=== PATIENT | female | born 2000 | race Caucasian/White ===

== ENCOUNTER 2019-03-30 15:38 | Emergency (ER) | payer BC ==
--- NOTE | 2019-03-30 16:17 | ER Document Report ---
ED Medical Screen (RME) - General Chief Complaint: Abdominal Cramping Stated Complaint: VAGINAL PAIN Time Seen by Provider: 03/30/19 16:13 - HPI Notes: 03/30/19 16:16 Patient is a 18-year-old female approximately 4 and half weeks by gestation who presents complaining of lower abdominal cramping over the past couple days. Pains do not radiate. She is able to eat and drink without difficulty. She is urinating normally and having normal bowel movements. No vaginal discharge, odor, or bleeding. Denies drug allergies. No other concerns or complaints. Denies any headache, fever, neck pain, URI, sore throat, chest pain, palpitations, syncope, cough, shortness of breath, wheeze, dyspnea, nausea/vomiting/diarrhea, urinary retention, dysuria, hematuria, back pain, or rash. I have treated and performed a rapid initial assessment of this patient. A comprehensive ED assessment and evaluation of the patient, analysis of test results and completion of medical decision making process will be conducted by additional ED providers. PHYSICAL EXAMINATION: GENERAL: Well-appearing, well-nourished and in no acute distress. A&Ox4. Answers questions appropriately. LUNGS: Breath sounds clear to auscultation bilaterally and equal. No wheezes rales or rhonchi. HEART: Regular rate and rhythm without murmurs, rubs, gallops. ABDOMEN: Soft, nondistended abdomen. No guarding, no rebound. Normal bowel sounds present. No CVA tenderness bilaterally. + lower pelvic tenderness (cannot elicit thorough abd exam w/o bed, however). - Related Data Allergies/Adverse Reactions: No Known Allergies Allergy (Verified 03/30/19 15:50) Past Medical History - Social History Chew tobacco use (# tins/day): No Frequency of alcohol use: None Drug Abuse: None Renal/ Medical History: Denies: Hx Peritoneal Dialysis Physical Exam - Vital signs Vitals: Temp Pulse Resp BP Pulse Ox 98.5 F 97 H 20 122/66 97 03/30/19 15:53 03/30/19 15:53 03/30/19 15:53 03/30/19 15:53 03/30/19 15:53 Course - Vital Signs Vital signs: Temp Pulse Resp BP Pulse Ox 98.5 F 97 H 20 122/66 97 03/30/19 15:53 03/30/19 15:53 03/30/19 15:53 03/30/19 15:53 03/30/19 15:53
[2019-03-30 16:45] LABS: ABSOLUTE BASOPHILS # (AUTO) 0.1 10^3/uL (0.0-0.2); ABSOLUTE EOSINOPHILS # (AUTO) 0.1 10^3/uL (0.0-0.6); ABSOLUTE MONOCYTES (AUTO) 0.8 10^3/uL (0.1-1.4); ABSOLUTE NEUT (AUTO) 12.2 10^3/uL (1.7-8.2); BASOPHILS % (AUTO) 0.6 % (0-2); EOSINOPHILS % (AUTO) 0.6 % (0-6); HEMATOCRIT 38.4 % (36.0-47.0); HEMOGLOBIN 13.2 g/dL (12.0-15.5); MEAN CORPUSCULAR HEMOGLOBIN 30.8 pg (27.0-33.4); MEAN CORPUSCULAR HGB CONC 34.2 g/dL (32.0-36.0); MEAN CORPUSCULAR VOLUME 90 fl (80-97); MONOCYTES % (AUTO) 5.3 % (3-13); PLATELET COUNT 203 10^3/uL (150-450); RED BLOOD COUNT 4.27 10^6/uL (3.72-5.28); RED CELL DISTRIBUTION WIDTH 12.4 % (11.5-14.0); SEGMENTED NEUTROPHILS % (AUTO) 80.5 % (42-78); TOTAL CELLS COUNTED % (AUTO) 100 %; WHITE BLOOD COUNT 15.1 10^3/uL (4.0-10.5)
[2019-03-30 16:49] LABS: APPEARANCE,URINE CLOUDY; BILIRUBIN,URINE NEGATIVE (NEGATIVE); COLOR,URINE YELLOW; GLUCOSE, URINE NEGATIVE (NEGATIVE); KETONES,URINE NEGATIVE (NEGATIVE); LEUKOCYTE ESTERASE,URINE MODERATE (NEGATIVE); NITRITE,URINE NEGATIVE (NEGATIVE); PROTEIN,URINE NEGATIVE (NEGATIVE); URINE SPECIFIC GRAVITY 1.017; UROBILINOGEN,URINE NEGATIVE mg/dL (<2.0)
[2019-03-30 17:08] LABS: ALANINE AMINOTRANSFERASE 31 U/L (5-35); ALKALINE PHOSPHATASE 81 U/L (50-135); ANION GAP 8 (5-19); ASPARTATE AMINO TRANSFERASE 23 U/L (5-30); BILIRUBIN,DIRECT 0.2 mg/dL (0.0-0.4); BILIRUBIN,TOTAL 0.2 mg/dL (0.2-1.3); BLOOD UREA NITROGEN 15 mg/dL (7-20); CALCIUM 9.3 mg/dL (8.4-10.2); CARBON DIOXIDE 25 mmol/L (22-30); CHLORIDE 105 mmol/L (98-107); GLUCOSE 114 mg/dL (75-110); LIPASE 93.6 U/L (23-300); POTASSIUM 3.9 mmol/L (3.6-5.0); SODIUM 138.4 mmol/L (137-145); TOTAL PROTEIN 6.9 g/dL (6.3-8.2)
--- NOTE | 2019-03-30 18:25 | RADIOLOGY REPORT (SQ) ---
EXAM DESCRIPTION: U/S OB TRANSVAG W/DOPPLER COMPLETED DATE/TIME: 03/30/2019 6:10 pm REASON FOR STUDY: pelvic cramping, home preg +, ?4wks COMPARISON: None. TECHNIQUE: Transvaginal static and realtime grayscale images acquired of the pelvis. Additional chloe cted spectral and color Doppler images recorded. All images stored on PACs. CLINICAL AGE: 4 week 2 day. BHC LIMITATIONS: None. FINDINGS: UTERUS: No visualized intrauterine . RIGHT ADNEXA: Normal ovary with normal vascular flow. No adnexal free fluid. No adnexal masses. LEFT ADNEXA: Normal ovary with normal vascular flow. No adnexal free fluid. Simple cyst(s) measuring 1 cm. FREE FLUID: None. OTHER: No other significant finding. IMPRESSION: NO VISUALIZED INTRA- OR EXTRAUTERINE . bHCG LEVEL TOO LOW TO EXPECT VISUALIZATION OF . ECTOPIC CANNOT BE EXCLUDED. FOLLOW-UP ULTRASOUND AND SERIAL BHCG LEVELS STRONGLY RECOMMENDED TO ACCURATELY ASSESS STATU S. TECHNICAL DOCUMENTATION: JOB ID: [id number] [employer]- All Rights Reserved Reading location - IP/workstation name: [email or web address]
--- NOTE | 2019-03-30 18:31 | ER Document Report ---
ED GI/ - General Chief Complaint: Abdominal Cramping Stated Complaint: VAGINAL PAIN Time Seen by Provider: 03/30/19 16:13 Primary Care Provider: [facility] [Provider Group] - Follow up tomorrow [facility] [NO LOCAL MD] - Follow up as needed Mode of Arrival: Ambulatory Information source: Patient Notes: Patient is currently 4 weeks G1, P0. Patient states she has had cramping to the lower abdomen and low back for the past 3 days. Patient states that she is also had right upper quadrant abdominal pain that started yesterday. Patient states she has a history of gallbladder disease and was advised that she would need to have her gallbladder taken out but she did not have that procedure done. Patient states that she has noticed recently with eating fatty foods that she has had a flareup of her abdominal pain symptoms. Patient denies any fever nausea or vomiting. Patient also reports that she is currently under treatment for recent strep infection and has about 5 more days of amoxicillin to take at home. Patient denies any vaginal bleeding. - HPI Patient complains to provider of: Abdominal pain, Pelvic pain, . No: Vaginal discharge Onset: Other - 3 days Quality of pain: Cramping Pain Level: 2 Location: RUQ, Pelvis Menstrual period history: Sexual history: Active Associated symptoms: denies: Constipation, Dysuria, Fever, Nausea, Urinary hesitancy, Urinary frequency, Urinary retention, Vaginal discharge, Vomiting Exacerbated by: Denies Relieved by: Denies Similar symptoms previously: No Recently seen / treated by doctor: No - Related Data Allergies/Adverse Reactions: No Known Allergies Allergy (Verified 03/30/19 15:50) Past Medical History - General Information source: Patient - Social History Smoking Status: Former Smoker Chew tobacco use (# tins/day): No Frequency of alcohol use: None Drug Abuse: None Lives with: Family Family History: Reviewed & Not Pertinent Patient has suicidal ideation: No Patient has homicidal ideation: No - Medical History Medical History: Negative Renal/ Medical History: Denies: Hx Peritoneal Dialysis Surgical Hx: Negative Review of Systems - Review of Systems Constitutional: Recent illness - Currently being treated for strep infection EENT: No symptoms reported. denies: Throat pain Cardiovascular: No symptoms reported. denies: Chest pain Respiratory: No symptoms reported. denies: Cough, Short of breath Gastrointestinal: Abdominal pain. denies: Nausea, Vomiting Genitourinary: No symptoms reported. denies: Dysuria, Flank pain Female Genitourinary: . denies: Vaginal discharge, Vaginal bleeding Musculoskeletal: Back pain Skin: No symptoms reported Hematologic/Lymphatic: No symptoms reported Neurological/Psychological: No symptoms reported Physical Exam - Vital signs Vitals: Temp Pulse Resp BP Pulse Ox 98.5 F 97 H 20 122/66 97 03/30/19 15:53 03/30/19 15:53 03/30/19 15:53 03/30/19 15:53 03/30/19 15:53 - General General appearance: Appears well, Alert In distress: None - HEENT Head: Normocephalic Eyes: Normal Conjunctiva: Normal - Respiratory Respiratory status: No respiratory distress Chest status: Nontender Breath sounds: Normal Chest palpation: Normal - Cardiovascular Rhythm: Regular Heart sounds: S1 appreciated, S2 appreciated Murmur: No - Abdominal Inspection: Normal Distension: No distension Bowel sounds: Normal Tenderness: Tender - RUQ, suprapubic Organomegaly: No organomegaly - Genitourinary External exam: Normal Speculum exam: Cervix closed, Vaginal discharge - Minimal white clumpy discharge Vaginal bleeding: None Bimanuel exam: Normal. No: Cervical motion tender, Adnexal tenderness Notes: PCT Byron standby - Back Back: Tender - Lumbar paraspinal tenderness - Extremities General upper extremity: Normal inspection, Normal strength General lower extremity: Normal inspection, Normal strength - Neurological Neuro grossly intact: Yes Cognition: Normal Mac Coma Scale Eye Opening: Spontaneous [place] Coma Scale Verbal: Oriented [place] Coma Scale Motor: Obeys Commands Mac Coma Scale Total: 15 - Psychological Associated symptoms: Normal affect, Normal mood - Skin Skin Temperature: Warm Skin Color: Ashen Course - Re-evaluation Re-evalutation: 03/30/19 20:37 Patient has a known history of gallbladder disease. Patient does have findings worrisome for cholelithiasis without any findings worrisome for acute cholecystitis. Patient afebrile with otherwise stable vital signs. Patient with mild leukocytosis although patient is at this time. No intrauterine noted on ultrasound although patient's quantitative hCG test is too low to expect to any intrauterine findings. Patient without any vaginal bleeding. Patient does have incidental leukocyte esterase on urinalysis although is currently still taking antibiotics for a strep infection. Will culture urine at this time. Patient additionally has findings worrisome for yeast vaginitis. Patient encouraged to follow-up with an TOOLER for further evaluation and to further evaluate her status. Patient will be given strict return precautions as well as an outpatient order for repeat blood work in the 48 hours. - Vital Signs Vital signs: Temp Pulse Resp BP Pulse Ox 98.5 F 78 20 116/73 98 03/30/19 15:53 03/30/19 20:54 03/30/19 15:53 03/30/19 20:54 03/30/19 20:54 - Laboratory Result Diagrams: 03/30/19 16:19 03/30/19 16:19 Laboratory results interpreted by me: 03/30/19 03/30/19 03/30/19 16:19 16:19 16:19 WBC 15.1 H Seg Neutrophils % 80.5 H Absolute Neutrophils 12.2 H Glucose 114 H Beta HCG, Quant 161.53 H Ur Leukocyte Esterase MODERATE H 03/30/19 20:36 Labs- Entire Visit 03/30/19 03/30/19 03/30/19 16:19 16:19 16:19 WBC 15.1 H RBC 4.27 Hgb 13.2 Hct 38.4 MCV 90 MCH 30.8 MCHC 34.2 RDW 12.4 Plt Count 203 Seg Neutrophils % 80.5 H Lymphocytes % 13.0 Monocytes % 5.3 Eosinophils % 0.6 Basophils % 0.6 Absolute Neutrophils 12.2 H Absolute Lymphocytes 2.0 Absolute Monocytes 0.8 Absolute Eosinophils 0.1 Absolute Basophils 0.1 Sodium 138.4 Potassium 3.9 Chloride 105 Carbon Dioxide 25 Anion Gap 8 BUN 15 Creatinine 0.54 Est GFR ( Amer) > 60 Est GFR (Non-Af Amer) > 60 Glucose 114 H Calcium 9.3 Total Bilirubin 0.2 Direct Bilirubin 0.2 Neonat Total Bilirubin Not Reportable Neonat Direct Bilirubin Not Reportable Neonat Indirect Bili Not Reportable AST 23 ALT 31 Alkaline Phosphatase 81 Total Protein 6.9 Albumin 4.0 Lipase 93.6 Beta HCG, Quant 161.53 H Total Beta HCG POSITIVE Urine Color YELLOW Urine Appearance CLOUDY Urine pH 5.0 Ur Specific [place] 1.017 Urine Protein NEGATIVE Urine Glucose (UA) NEGATIVE Urine Ketones NEGATIVE Urine Blood NEGATIVE Urine Nitrite NEGATIVE Urine Bilirubin NEGATIVE Urine Urobilinogen NEGATIVE Ur Leukocyte Esterase MODERATE H Urine WBC (Auto) 10 Urine RBC (Auto) 3 Urine Bacteria (Auto) TRACE Squamous Epi Cells Auto 13 Urine Mucus (Auto) RARE Urine Ascorbic Acid NEGATIVE Trichomonas (Wet Prep) Vaginal WBC Vaginal Yeast 03/30/19 18:30 WBC RBC Hgb Hct MCV MCH MCHC RDW Plt Count Seg Neutrophils % Lymphocytes % Monocytes % Eosinophils % Basophils % Absolute Neutrophils Absolute Lymphocytes Absolute Monocytes Absolute Eosinophils Absolute Basophils Sodium Potassium Chloride Carbon Dioxide Anion Gap BUN Creatinine Est GFR ( Amer) Est GFR (Non-Af Amer) Glucose Calcium Total Bilirubin Direct Bilirubin Neonat Total Bilirubin Neonat Direct Bilirubin Neonat Indirect Bili AST ALT Alkaline Phosphatase Total Protein Albumin Lipase Beta HCG, Quant Total Beta HCG Urine Color Urine Appearance Urine pH Ur Specific [place] Urine Protein Urine Glucose (UA) Urine Ketones Urine Blood Urine Nitrite Urine Bilirubin Urine Urobilinogen Ur Leukocyte Esterase Urine WBC (Auto) Urine RBC (Auto) Urine Bacteria (Auto) Squamous Epi Cells Auto Urine Mucus (Auto) Urine Ascorbic Acid Trichomonas (Wet Prep) NO TRICHOMONAS SEEN Vaginal WBC FEW WBCS SEEN Vaginal Yeast YEAST SEEN - Diagnostic Test Radiology reviewed: Reports reviewed Discharge - Discharge Clinical Impression: test positive, Pelvic pain, Yeast vaginitis Cholelithiasis Qualifiers: Cholelithiasis location: gallbladder Cholecystitis presence: without cholecystitis Biliary obstruction: without biliary obstruction Qualified Code(s): K80.20 - Calculus of gallbladder without cholecystitis without obstruction Condition: Stable Disposition: HOME, SELF-CARE Instructions: Ectopic Precaution ([facility]), Gallbladder Disease ([facility]), Vaginal Yeast Infection ([facility]) Additional Instructions: Return immediately for any new or worsening symptoms Followup with your primary care provider, call tomorrow to make a followup appointment You may need to have a HIDA scan performed to further evaluate gallbladder dysfunction. A primary doctor can order this study for you on an outpatient basis. You will need to have repeat blood work in 2 days to further evaluate status as well as a repeat ultrasound in the future. Follow-up with a whitewasher for further evaluation of your status at this time. Follow-up with an TOOLER provider for further evaluation as well as to establish care. Urine culture is pending, we will call if you need any different treatment. Prescriptions: Clotrimazole [Clotrimazole-7] 1 applic VG QHS #45 gm Forms: Follow-Up Laboratory Testing [facility] - Follow up as needed [facility] [Provider Group] - Follow up tomorrow
[2019-03-30 19:06] LABS: T.VAGINALIS (WET MOUNT) NO TRICHOMONAS SEEN; YEAST (WET MOUNT) YEAST SEEN
[2019-03-30 19:09] LABS: WBCS (WET MOUNT) FEW WBCS SEEN
--- NOTE | 2019-03-30 20:24 | RADIOLOGY REPORT (SQ) ---
EXAM DESCRIPTION: US ABDOMEN LIMITED COMPLETED DATE/TME: 03/30/2019 18:30 CLINICAL HISTORY: 18 years, Female, RUQ pain COMPARISON: None. TECHNIQUE: Gandara scale sonography of the right upper quadrant abdomen. LIMITATIONS: None. FINDINGS: LIVER: Within normal limits morphology and echogenicity measuring 12.3 cm. GALLBLADDER: Focal area of echogenicity at the level of the proximal gallbladder/gallbladder neck measuring 6 mm compatible with calculus. Within normal limits without gallbladder wall thickening pericholecystic fluid. Negative sonographic Savage's sign. Small focal area of echogenicity present within the dependent gallbladder measuring 3 mm raising the possibility of adherent sludge versus polyp. BILIARY TRACT: No significant abnormalities noted. The common bile duct measures 4 mm. PANCREAS: Limited evaluation secondary to partial obscuration by overlying bowel gas otherwise within normal limits. KIDNEY: The RIGHT kidney is within normal limits of morphology and echogenicity measuring 10 cm in craniocaudal dimension. IMPRESSION: 1. 6 mm nonmobile calculus at the level of the proximal dependent gallbladder/gallbladder neck. 2. The gallbladder appears to be otherwise within normal limits without pericholecystic fluid or gallbladder wall thickening. If there remains clinical concern for acute cholecystitis, further evaluation with HIDA scan may be considered. copyright 2010 [employer]- All Rights Reserved
[2019-03-30 20:34] LABS: CHLAM PCR NOT DETECTED (NOT DETECT); GON PCR NOT DETECTED (NOT DETECT)
[2019-03-30 20:57] VITALS: BP 116/73
== END 2019-03-30 20:57 | disposition home or self-care (01) ==
LOC: ER 15:38
DX: O98.811 Other maternal infectious and parasitic diseases complicating pregnancy, first trimester (principal); B37.3 Candidiasis of vulva and vagina; O99.611 Diseases of the digestive system complicating pregnancy, first trimester; K80.20 Calculus of gallbladder without cholecystitis without obstruction; Z3A.01 Less than 8 weeks gestation of pregnancy
CPT/HCPCS: 36415; 76705; 76817; 80053; 81001; 83690; 84702; 85025; 87086; 87088; 87210; 87491; 87591; 93976; 99284

== ENCOUNTER 2019-04-20 14:05 | Emergency (ER) | payer BC ==
--- NOTE | 2019-04-20 15:37 | ER Document Report ---
HPI - HPI Time Seen by Provider: 04/20/19 15:09 Pain Level: 3 Context: Patient is a 19-year-old female who presents to the emergency department with a chief complaint of hitting her head. She hit her head this morning at 9:00 in a few minutes later she hit her head again. She hit her ahead on the windowsill, because her bed is close to the window. Patient denies any dizziness beforehand. Patient is currently 7 weeks . She also states that she has some dysuria. Denies any abdominal pain. - ROS Notes: REVIEW OF SYSTEMS: CONSTITUTIONAL : Denies recent illness. Denies recent unintentional weight loss. Denies fever, chills, or sweats. EENT: Denies eye, ear, throat, or mouth pain, discharge, or symptoms. Denies nasal or sinus congestion. CARDIOVASCULAR: Denies chest pain. RESPIRATORY: Denies shortness of breath, cough, congestion, difficulty breathing, or wheezing. GASTROINTESTINAL: Denies nausea, vomiting, and diarrhea. Denies abdominal pain. Denies constipation. GENITOURINARY: See HPI MUSCULOSKELETAL: Denies neck and back pain. Denies joint pain or swelling. SKIN: Denies rash, itchiness, or lesions HEMATOLOGIC : Denies easy bruising or bleeding. LYMPHATIC: Denies swollen, painful, enlarged glands. NEUROLOGICAL: Denies no numbness or tingling denies weakness. Denies headache. Denies altered mental status. Denies alteration in speech. See HPI PSYCHIATRIC: Denies stress, anxiety, alteration in sleep patterns, or depression. All other systems reviewed and negative. - REPRODUCTIVE LMP: 02/20/19 Reproductive: REPORTS: : Past Medical History - General Information source: Patient - Social History Smoking Status: Unknown if Ever Smoked Family History: Reviewed & Not Pertinent Renal/ Medical History: Denies: Hx Peritoneal Dialysis Vertical Provider Document - CONSTITUTIONAL Notes: PHYSICAL EXAMINATION: GENERAL: Appears well, healthy, well-nourished, no acute distress. HEAD: Normocephalic, atraumatic. EYES: PERRL, conjunctiva normal, all extraocular movements intact, sclera nonicteric ENT: Moist mucous membranes. NECK: Supple, no noticeable swelling, redness, rash. Normal range of motion. LUNGS: Equal breath sounds bilaterally and clear to auscultation. No wheezes rales or rhonchi. CARDIOVASCULAR: S1-S2, regular rate, regular rhythm. Radial pulses 2+, normal. ABDOMEN: Normoactive bowel sounds. Soft, nontender, no guarding, no rebound tenderness, and no masses palpated. EXTREMITIES: Normal strength and range of motion, no pitting or edema. No c yanosis. NEUROLOGICAL: Moves all extremities upon command. Strength 5/5 in all extremities. PSYCH: Normal mood, normal affect. SKIN: Warm, dry. No rash, lesions, ulcerations noted. Normal skin turgor. - INFECTION CONTROL TRAVEL OUTSIDE OF THE [place] IN LAST 30 DAYS: No Course - Re-evaluation Re-evalutation: 04/20/19 16:39 According to the [place] head CT rule, the patient's does not meet criteria to have a CT of the head. Patient's urinalysis shows bacteria and a small amount of leukocytes in her urine. I will start her on Keflex since she has symptoms and is . She will follow-up with her primary care provider in regards to this visit. I have a very low suspicion for an infected kidney stone, urosepsis, or any life-threatening etiology at this time. A urine culture will be sent. Follow-up precautions were given. Verbal discharge instructions were given to the patient. They verbalized understanding. They are stable for discharge. - Vital Signs Vital signs: Temp Pulse Resp BP Pulse Ox 98.5 F 80 18 115/62 98 04/20/19 14:09 04/20/19 14:09 04/20/19 14:09 04/20/19 14:09 04/20/19 14:09 Discharge - Discharge Clinical Impression: Dysuria Head contusion Qualifiers: Encounter type: initial encounter Contusion of head detail: scalp Qualified Code(s): S00.03XA - Contusion of scalp, initial encounter Condition: Stable Disposition: HOME, SELF-CARE Additional Instructions: You were seen here in the emergency department after hitting her head. You most likely suffered a concussion. You can take Tylenol 650 mg every 6 hours as needed for any headache. Please follow-up with your primary care provider once you are enrolled in 2 years. You are also being treated for a urinary tract infection. Please take all your antibiotics as prescribed. Concussion You have suffered a concussion -- a temporary loss of certain brain functions due to a mild brain injury. The recovery is usually rapid and complete. The temporary problems occurring with a concussion can include loss of consciousness, dizziness, nausea, vomiting, and confusion. Repeat concussions can cause brain damage. In the future, avoid activities that will cause a blow to your head. Wear a helmet for sports such as snowboarding, biking, or skating. It's important that someone be with you for the first 24 hours. During this time, do not exercise or drive a vehicle. Do not take any pain medication stronger than acetaminophen unless prescribed by the physician. Any significant changes should be reported immediately to the physician. Signs of a problem may include: (1) Mental confusion (2) Incoordination or staggering (3) Repeated or forceful vomiting (4) Clear or bloody drainage from ear, mouth, or nose (5) Severe headache, not relieved by acetaminophen or prescribed pain medication (6) Failure to improve in 24 hours Prescriptions: Cephalexin Monohydrate [Keflex 500 mg Capsule] 500 mg PO BID #10 capsule
[2019-04-20 15:57] LABS: APPEARANCE,URINE SLIGHTLY-CLOUDY; BILIRUBIN,URINE NEGATIVE (NEGATIVE); COLOR,URINE YELLOW; GLUCOSE, URINE NEGATIVE (NEGATIVE); KETONES,URINE NEGATIVE (NEGATIVE); LEUKOCYTE ESTERASE,URINE SMALL (NEGATIVE); NITRITE,URINE NEGATIVE (NEGATIVE); PROTEIN,URINE NEGATIVE (NEGATIVE); UROBILINOGEN,URINE NEGATIVE mg/dL (<2.0)
[2019-04-20 16:42] VITALS: BP 103/53
== END 2019-04-20 16:53 | disposition home or self-care (01) ==
LOC: ER 14:05
DX: O9A.211 Injury, poisoning and certain other consequences of external causes complicating pregnancy, first trimester (principal); S00.03XA Contusion of scalp, initial encounter; X58.XXXA Exposure to other specified factors, initial encounter; O26.891 Other specified pregnancy related conditions, first trimester; R30.0 Dysuria; Z3A.01 Less than 8 weeks gestation of pregnancy
CPT/HCPCS: 81001; 87086; 99283

== ENCOUNTER 2019-05-03 21:02 | Emergency (ER) | payer BC ==
[2019-05-03 21:35] VITALS: BP 110/65
== END 2019-05-03 23:00 | disposition left against medical advice (07) ==
LOC: ER 21:02
DX: Z53.21 Procedure and treatment not carried out due to patient leaving prior to being seen by health care provider (principal)

== ENCOUNTER 2019-10-28 15:45 | Outpatient (CLI) | payer OTHER ==
[2019-10-28 16:56] LABS: APPEARANCE,URINE SLIGHTLY-CLOUDY; BILIRUBIN,URINE NEGATIVE (NEGATIVE); COLOR,URINE YELLOW; GLUCOSE, URINE NEGATIVE (NEGATIVE); KETONES,URINE NEGATIVE (NEGATIVE); LEUKOCYTE ESTERASE,URINE MODERATE (NEGATIVE); NITRITE,URINE NEGATIVE (NEGATIVE); PROTEIN,URINE NEGATIVE (NEGATIVE); URINE SPECIFIC GRAVITY 1.014; UROBILINOGEN,URINE NEGATIVE mg/dL (<2.0)
[2019-10-28 17:22] LABS: URINE AMPHETAMINES SCREEN NEGATIVE; URINE BARBITURATES SCREEN NEGATIVE; URINE BENZODIAZEPINES SCREEN NEGATIVE; URINE COCAINE SCREEN NEGATIVE; URINE MARIJUANA (THC) SCREEN NEGATIVE; URINE METHADONE SCREEN NEGATIVE; URINE PHENCYCLIDINE SCREEN NEGATIVE
[2019-10-28] MEDS ORDERED: TERBUTALINE SULFATE INJ/PF 1 MG/1 ML SDV SUBCUT ONE (18:24)
[2019-10-28] MEDS ORDERED: CEFTRIAXONE INJ 1000 MG VIAL IV ONE (18:25)
[2019-10-28] MEDS ORDERED: TERBUTALINE SULFATE INJ/PF 1 MG/1 ML SDV ONE (18:32)
[2019-10-28] MEDS ORDERED: CEFTRIAXONE INJ 1000 MG VIAL ONE (18:32)
--- NOTE | 2019-10-28 18:44 | RADIOLOGY REPORT (SQ) ---
EXAM DESCRIPTION: U/S OB LIMITED COMPLETED DATE/TIME: 10/28/2019 5:38 pm REASON FOR STUDY: contractions at 33.5 COMPARISON: None. TECHNIQUE: Limited transabdominal grayscale ultrasound for evaluation of specific requested obstetri ashleigh parameters. LIMITATIONS: None. FINDINGS: CERVICAL LENGTH: 3.2 cm. Closed. OLGA: 11.9 cm. FHR: 143 beats per minute. PRESENTATION: Cephalic. PLACENTA: Anterior and lateral to the right. Grade 2. There appears to be a small venous gavin measu ring 12 mm. ANATOMY: Not assessed OTHER: 34 weeks 5 days gestation. IMPRESSION: LIMITED OBSTETRICAL ULTRASOUND WITH MEASURED PARAMETERS DELINEATED ABOVE. Trimester of : Third trimester - 28 weeks to delivery. TECHNICAL DOCUMENTATION: JOB ID: [id number] [employer]- All Rights Reserved Reading location - IP/workstation name: [email or web address]
[2019-10-28] MEDS ORDERED: HYDROXYZINE PAMOATE 50 MG CAPSULE ONE (22:24)
[2019-10-28] MEDS ORDERED: HYDROXYZINE PAMOATE 50 MG CAPSULE PO ONE (23:00)
== END 2019-10-28 22:42 | disposition home or self-care (01) ==
LOC: LC 15:45
PROVIDERS: ATTEND Obstetrics & Gynecology Gynecology
PROC: 4A1HXCZ Monitoring of Products of Conception, Cardiac Rate, External Approach (ICD-10-PCS; principal; 2019-10-28)
DX: O47.03 False labor before 37 completed weeks of gestation, third trimester (principal); Z3A.33 33 weeks gestation of pregnancy
CPT/HCPCS: 59025; 81001; 80307; 76815; J0696; J3105

== ENCOUNTER 2019-11-02 17:44 | Outpatient (CLI) | payer OTHER ==
[2019-11-02] MEDS ORDERED: BETAMET ACET/BETAMET NA INJ 6 MG/1 ML ONE ×2 (18:21→18:29)
[2019-11-02] MEDS ORDERED: HYDROXYZINE PAMOATE 50 MG CAPSULE ONE (18:21)
[2019-11-02] MEDS ORDERED: NIFEDIPINE 30 MG TAB.ER.24 PO ONE ×2 (18:21→19:30)
[2019-11-02 18:25] LABS: APPEARANCE,URINE CLOUDY; BILIRUBIN,URINE NEGATIVE (NEGATIVE); COLOR,URINE YELLOW; GLUCOSE, URINE NEGATIVE (NEGATIVE); KETONES,URINE NEGATIVE (NEGATIVE); LEUKOCYTE ESTERASE,URINE LARGE (NEGATIVE); NITRITE,URINE NEGATIVE (NEGATIVE); PROTEIN,URINE NEGATIVE (NEGATIVE); URINE SPECIFIC GRAVITY 1.009; UROBILINOGEN,URINE NEGATIVE mg/dL (<2.0)
[2019-11-02 18:38] LABS: URINE AMPHETAMINES SCREEN NEGATIVE; URINE BARBITURATES SCREEN NEGATIVE; URINE BENZODIAZEPINES SCREEN NEGATIVE; URINE COCAINE SCREEN NEGATIVE; URINE MARIJUANA (THC) SCREEN NEGATIVE; URINE METHADONE SCREEN NEGATIVE; URINE PHENCYCLIDINE SCREEN NEGATIVE
[2019-11-02] MEDS ORDERED: BETAMET ACET/BETAMET NA INJ 6 MG/1 ML IM ONE (19:30)
[2019-11-02] MEDS ORDERED: HYDROXYZINE PAMOATE 50 MG CAPSULE PO ONE (20:00)
[2019-11-02] MEDS ORDERED: NITROFURANTOIN MONOHYD/M-CRYST 100 MG CAPSULE PO ONE (20:36)
[2019-11-02] MEDS ORDERED: NITROFURANTOIN MONOHYD/M-CRYST 100 MG CAPSULE ONE (20:42)
[2019-11-02 20:51] LABS: BACTERIA (WET MOUNT) 4+ BACTERIA SEEN; EPITHELIALS (WET MOUNT) 4+ EPITHELIALS SEEN; T.VAGINALIS (WET MOUNT) NO TRICHOMONAS SEEN; WBCS (WET MOUNT) 4+ WBCS SEEN; YEAST (WET MOUNT) NO YEAST SEEN
[2019-11-02] MEDS ORDERED: NIFEDIPINE 10 MG CAPSULE ONE (21:16)
[2019-11-02] MEDS ORDERED: NIFEDIPINE 10 MG CAPSULE PO SCH (22:00)
== END 2019-11-02 21:32 | disposition home or self-care (01) ==
LOC: LC 17:44
PROVIDERS: ATTEND Obstetrics & Gynecology
PROC: 4A1HXCZ Monitoring of Products of Conception, Cardiac Rate, External Approach (ICD-10-PCS; principal; 2019-11-02)
DX: O60.03 Preterm labor without delivery, third trimester (principal); Z3A.34 34 weeks gestation of pregnancy
CPT/HCPCS: 59025; 87086; 87210; 87088; 81001; 87081; 80307; J3490; J0702; J8499

== ENCOUNTER 2019-11-17 09:54 | Outpatient (CLI) | payer OTHER ==
[2019-11-17 10:38] LABS: APPEARANCE,URINE SLIGHTLY-CLOUDY; BILIRUBIN,URINE NEGATIVE (NEGATIVE); COLOR,URINE YELLOW; GLUCOSE, URINE NEGATIVE (NEGATIVE); KETONES,URINE NEGATIVE (NEGATIVE); LEUKOCYTE ESTERASE,URINE MODERATE (NEGATIVE); NITRITE,URINE NEGATIVE (NEGATIVE); PROTEIN,URINE 30 mg/dL (NEGATIVE); URINE SPECIFIC GRAVITY 1.013; UROBILINOGEN,URINE NEGATIVE mg/dL (<2.0)
[2019-11-17 10:52] LABS: ABSOLUTE LYMPHOCYTES (AUTO) 1.4 10^3/uL (0.5-4.7); ABSOLUTE MONOCYTES (AUTO) 0.9 10^3/uL (0.1-1.4); ABSOLUTE NEUT (AUTO) 9.3 10^3/uL (1.7-8.2); BASOPHILS % (AUTO) 0.3 % (0-2); EOSINOPHILS % (AUTO) 0.3 % (0-6); HEMATOCRIT 31.9 % (36.0-47.0); HEMOGLOBIN 10.8 g/dL (12.0-15.5); LYMPHOCYTES % (AUTO) 11.7 % (13-45); MEAN CORPUSCULAR HEMOGLOBIN 29.2 pg (27.0-33.4); MEAN CORPUSCULAR VOLUME 86 fl (80-97); MONOCYTES % (AUTO) 7.9 % (3-13); PLATELET COUNT 212 10^3/uL (150-450); RED BLOOD COUNT 3.72 10^6/uL (3.72-5.28); SEGMENTED NEUTROPHILS % (AUTO) 79.8 % (42-78); TOTAL CELLS COUNTED % (AUTO) 100 %; WHITE BLOOD COUNT 11.6 10^3/uL (4.0-10.5)
[2019-11-17 11:04] LABS: URINE BARBITURATES SCREEN NEGATIVE; URINE BENZODIAZEPINES SCREEN NEGATIVE; URINE COCAINE SCREEN NEGATIVE; URINE MARIJUANA (THC) SCREEN NEGATIVE; URINE METHADONE SCREEN NEGATIVE; URINE PHENCYCLIDINE SCREEN NEGATIVE
[2019-11-17 11:06] LABS: ALBUMIN 2.9 g/dL (3.5-5.0); ALKALINE PHOSPHATASE 133 U/L (38-126); ANION GAP 10 (5-19); ASPARTATE AMINO TRANSFERASE 22 U/L (14-36); BILIRUBIN,DIRECT 0.2 mg/dL (0.0-0.4); BILIRUBIN,TOTAL 0.2 mg/dL (0.2-1.3); BLOOD UREA NITROGEN 10 mg/dL (7-20); CARBON DIOXIDE 19 mmol/L (22-30); CHLORIDE 108 mmol/L (98-107); GLUCOSE 94 mg/dL (75-110); POTASSIUM 3.8 mmol/L (3.6-5.0); TOTAL PROTEIN 5.9 g/dL (6.3-8.2); URIC ACID 4.3 mg/dL (2.5-6.2)
[2019-11-17 11:08] LABS: URINE AMPHETAMINES SCREEN NEGATIVE
[2019-11-17 11:10] LABS: UR PRO/CREAT RATIO RESULT 0.4 mg/mg (0.0-0.2); URINE CREATININE 78.4 mg/dL (16-327); URINE PROTEIN 30.9 mg/dL (<12)
--- NOTE | 2019-11-17 11:45 | Non Stress Test Report ---
Non Stress Test Datetime Report Generated by CPN: 11/17/2019 11:45 DEMOGRAPHIC EGA NST: 36.4 EGA NST: 34.3 INDICATION Indication for Study (NST) Other: LC- contractions MONITORING Monitor Explained: Monitor Explained Monitor Explained: Monitor Explained; Test Explained; Patient Verbalized Understanding Monitor Explained: Monitor Explained; Test Explained; Patient Verbalized Understanding Time on Monitor: 11/17/2019 10:28 Time on Monitor: 11/02/2019 17:56 Time on Monitor: 10/28/2019 16:13 Time off Monitor: 11/17/2019 11:41 Time off Monitor: 11/02/2019 21:19 Time off Monitor: 10/28/2019 16:35 NST Duration: 73 NST Duration: 203 NST Duration: 22 NST INTERVENTIONS NST Interventions: Meal Given; Reposition Patient NST Interventions: PO Hydration; Meal Given; Reposition Patient NST Interventions: PO Hydration; IV Fluids Physician Notified NST: Dr. Nuñez Physician Notified NST: Dr. Alves Physician Notified NST: Dr. Mackey BABY A: [id number] BABY A Movement : Present Movement : Present Movement : Present Contraction Frequency : noen Contraction Frequency : irregular Contraction Frequency : 2-6 FHR Baseline : 135 FHR Baseline : 130 FHR Baseline : 145 Accelerations : 15X15 Accelerations : 15X15 Accelerations : 15X15 Decelerations : None Decelerations : None Decelerations : None Variability : Moderate 6-25bpm Variability : Moderate 6-25bpm Variability : Moderate 6-25bpm NST Review: Meets Criteria for Reactive NST NST Review: Meets Criteria for Reactive NST NST Review: Meets Criteria for Reactive NST NST Review and Verified By : RASTA HITCHCOCK RN NST Review and Verified By : Neal Becerra RN NST Review and Verified By : Josesito Crowder RN NST Results: Reactive NST Results: Reactive NST Results: Reactive NST REPORT Report Trigger: Send Report
== END 2019-11-17 11:52 | disposition home or self-care (01) ==
LOC: LC 09:54
PROVIDERS: ATTEND Obstetrics & Gynecology
PROC: 4A1HXCZ Monitoring of Products of Conception, Cardiac Rate, External Approach (ICD-10-PCS; principal; 2019-11-17)
DX: O47.03 False labor before 37 completed weeks of gestation, third trimester (principal); O16.3 Unspecified maternal hypertension, third trimester; Z3A.36 36 weeks gestation of pregnancy
CPT/HCPCS: 36415; 59025; 80053; 80307; 81001; 82570; 83615; 84156; 84550; 85025

== ENCOUNTER 2019-11-17 20:11 | Outpatient (CLI) | payer OTHER ==
[2019-11-17] MEDS ORDERED: HYDROXYZINE PAMOATE 50 MG CAPSULE ONE (21:26)
--- NOTE | 2019-11-17 21:40 | Non Stress Test Report ---
Non Stress Test Datetime Report Generated by CPN: 11/17/2019 21:40 DEMOGRAPHIC EGA NST: 36.4 MONITORING Monitor Explained: Monitor Explained; Test Explained; Patient Verbalized Understanding Time on Monitor: 11/17/2019 20:25 Time off Monitor: 11/17/2019 21:27 NST Duration: 62 NST INTERVENTIONS NST Interventions: PO Hydration; Reposition Patient Physician Notified NST: Dr. Younger BABY A: [id number] BABY A Movement : Present Contraction Frequency : Irregular FHR Baseline : 145 Accelerations : 15X15 Decelerations : None Variability : Moderate 6-25bpm NST Review: Meets Criteria for Reactive NST NST Review and Verified By : LINDY Rush Results: Reactive NST REPORT Report Trigger: Send Report
== END 2019-11-17 21:32 | disposition home or self-care (01) ==
LOC: LC 20:11
PROVIDERS: ATTEND Obstetrics & Gynecology
PROC: 4A1HXCZ Monitoring of Products of Conception, Cardiac Rate, External Approach (ICD-10-PCS; principal; 2019-11-17)
DX: O47.03 False labor before 37 completed weeks of gestation, third trimester (principal); Z3A.36 36 weeks gestation of pregnancy
CPT/HCPCS: 59025

== ENCOUNTER 2019-11-18 12:27 | Outpatient (CLI) | payer OTHER ==
[2019-11-18 13:20] LABS: APPEARANCE,URINE SLIGHTLY-CLOUDY; BILIRUBIN,URINE NEGATIVE (NEGATIVE); COLOR,URINE YELLOW; GLUCOSE, URINE NEGATIVE (NEGATIVE); KETONES,URINE NEGATIVE (NEGATIVE); LEUKOCYTE ESTERASE,URINE LARGE (NEGATIVE); NITRITE,URINE NEGATIVE (NEGATIVE); PROTEIN,URINE NEGATIVE (NEGATIVE); URINE SPECIFIC GRAVITY 1.004; UROBILINOGEN,URINE NEGATIVE mg/dL (<2.0)
[2019-11-18 13:31] LABS: 24 HOUR URINE PROTEIN RESULT 605 mg/day (42-225); URINE PROTEIN 19.9 mg/dL (<12)
[2019-11-18 13:40] LABS: HEMATOCRIT 32.9 % (36.0-47.0); HEMOGLOBIN 11.2 g/dL (12.0-15.5); MEAN CORPUSCULAR HEMOGLOBIN 29.3 pg (27.0-33.4); MEAN CORPUSCULAR VOLUME 86 fl (80-97); PLATELET COUNT 214 10^3/uL (150-450); RED BLOOD COUNT 3.82 10^6/uL (3.72-5.28); RED CELL DISTRIBUTION WIDTH 13.4 % (11.5-14.0); WHITE BLOOD COUNT 12.2 10^3/uL (4.0-10.5)
[2019-11-18 13:43] LABS: URINE AMPHETAMINES SCREEN NEGATIVE; URINE BARBITURATES SCREEN NEGATIVE; URINE BENZODIAZEPINES SCREEN NEGATIVE; URINE COCAINE SCREEN NEGATIVE; URINE MARIJUANA (THC) SCREEN NEGATIVE; URINE METHADONE SCREEN NEGATIVE; URINE PHENCYCLIDINE SCREEN NEGATIVE
[2019-11-18 14:00] LABS: ALKALINE PHOSPHATASE 135 U/L (38-126); ANION GAP 11 (5-19); ASPARTATE AMINO TRANSFERASE 22 U/L (14-36); BILIRUBIN,DIRECT 0.2 mg/dL (0.0-0.4); BILIRUBIN,TOTAL 0.2 mg/dL (0.2-1.3); BLOOD UREA NITROGEN 7 mg/dL (7-20); CALCIUM 8.6 mg/dL (8.4-10.2); CARBON DIOXIDE 18 mmol/L (22-30); CHLORIDE 108 mmol/L (98-107); POTASSIUM 3.7 mmol/L (3.6-5.0); URIC ACID 4.6 mg/dL (2.5-6.2)
[2019-11-18 14:08] LABS: GLUCOSE 64 mg/dL (75-110)
== END 2019-11-18 15:00 | disposition home or self-care (01) ==
LOC: LC 12:27
PROVIDERS: ATTEND Obstetrics & Gynecology Gynecology
PROC: 4A1HXCZ Monitoring of Products of Conception, Cardiac Rate, External Approach (ICD-10-PCS; principal; 2019-11-18)
DX: O14.93 Unspecified pre-eclampsia, third trimester (principal); Z3A.36 36 weeks gestation of pregnancy
CPT/HCPCS: 36415; 59025; 80053; 80307; 81005; 83615; 84156; 84550; 85027

== ENCOUNTER 2019-11-20 18:47 | Outpatient (CLI) | payer OTHER ==
[2019-11-20 19:31] LABS: APPEARANCE,URINE SLIGHTLY-CLOUDY; BILIRUBIN,URINE NEGATIVE (NEGATIVE); COLOR,URINE YELLOW; GLUCOSE, URINE NEGATIVE (NEGATIVE); KETONES,URINE NEGATIVE (NEGATIVE); LEUKOCYTE ESTERASE,URINE LARGE (NEGATIVE); NITRITE,URINE NEGATIVE (NEGATIVE); PROTEIN,URINE 100 mg/dL (NEGATIVE); URINE SPECIFIC GRAVITY 1.013; UROBILINOGEN,URINE NEGATIVE mg/dL (<2.0)
[2019-11-20 19:46] LABS: URINE AMPHETAMINES SCREEN NEGATIVE; URINE BARBITURATES SCREEN NEGATIVE; URINE BENZODIAZEPINES SCREEN NEGATIVE; URINE MARIJUANA (THC) SCREEN NEGATIVE; URINE METHADONE SCREEN NEGATIVE; URINE PHENCYCLIDINE SCREEN NEGATIVE
[2019-11-20 19:52] LABS: URINE COCAINE SCREEN NEGATIVE
== END 2019-11-20 19:44 | disposition home or self-care (01) ==
LOC: LC 18:47
PROVIDERS: ATTEND Obstetrics & Gynecology
PROC: 4A1HXCZ Monitoring of Products of Conception, Cardiac Rate, External Approach (ICD-10-PCS; principal; 2019-11-20)
DX: O36.8130 Decreased fetal movements, third trimester, not applicable or unspecified (principal); Z3A.37 37 weeks gestation of pregnancy
CPT/HCPCS: 59025; 80307; 81005

== ENCOUNTER 2019-11-21 18:31 | Inpatient (IN) | payer OTHER ==
--- NOTE | 2019-11-21 18:34 | Non Stress Test Report ---
Non Stress Test Datetime Report Generated by CPN: 11/21/2019 18:34 DEMOGRAPHIC Test Number: 5 EGA NST: 37.0 EGA NST: 36.5 INDICATION Indication for Study (NST) Other: LC Indication for Study (NST) Other: Proteinuria VITAL SIGNS Temperature - NST: 98.3 Pulse - NST: 88 RESP - NST: 16 NBPSYS NST: 142 NBPDIA NST: 66 URINE RESULTS Urine Protein, NST: Positive Urine Ketones - NST: Negative Urine Glucose - NST: Negative Urine Blood - NST: Negative MONITORING Monitor Explained: Monitor Explained; Test Explained; Patient Verbalized Understanding Monitor Explained: Monitor Explained; Test Explained; Patient Verbalized Understanding Time on Monitor: 11/20/2019 19:04 Time on Monitor: 11/18/2019 12:47 Time off Monitor: 11/20/2019 19:37 Time off Monitor: 11/18/2019 13:39 NST Duration: 33 NST Duration: 52 NST INTERVENTIONS NST Interventions: PO Hydration; Other NST Interventions: PO Hydration; Reposition Patient NST Interventions Other: popsicle Physician Notified NST: Joselyn Physician Notified NST: Sidney SilvaASMITA BABY A: [id number] BABY A Movement : Present Movement : Present Contraction Frequency : OCC FHR Baseline : 145 Accelerations : 15X15 Accelerations : 15X15 Decelerations : None Decelerations : None Variability : Moderate 6-25bpm Variability : Moderate 6-25bpm NST Review: Meets Criteria for Reactive NST NST Review: Meets Criteria for Reactive NST NST Review and Verified By : Adriana Silveira RN NST Review and Verified By : Avis MOSQUEDA Results: Reactive NST Results: Reactive NST REPORT Report Trigger: Send Report
[2019-11-21] MEDS ORDERED: RINGERS SOLUTION,LACTATED 1,000 ML IV PRN (18:52)
[2019-11-21] MEDS ORDERED: ACETAMINOPHEN 325 MG TABLET PO PRN (18:56)
[2019-11-21] MEDS ORDERED: MAG HYDROX/AL HYDROX/SIMETH SUSP 30 ML UDCUP PO PRN (18:56)
[2019-11-21] MEDS ORDERED: ZOLPIDEM TARTRATE 5 MG TABLET PO PRN (18:56)
[2019-11-21] MEDS ORDERED: DINOPROSTONE 10 MG VAGINAL INSERT.SR ONE (19:26)
[2019-11-21] MEDS ORDERED: RINGERS SOLUTION,LACTATED 300 ML IV ONE (19:30)
[2019-11-21] MEDS ORDERED: DINOPROSTONE 10 MG VAGINAL INSERT.SR PV ONE (19:30)
[2019-11-21 19:33] LABS: APPEARANCE,URINE CLOUDY; BILIRUBIN,URINE NEGATIVE (NEGATIVE); COLOR,URINE YELLOW; GLUCOSE, URINE NEGATIVE (NEGATIVE); KETONES,URINE NEGATIVE (NEGATIVE); LEUKOCYTE ESTERASE,URINE LARGE (NEGATIVE); NITRITE,URINE NEGATIVE (NEGATIVE); PROTEIN,URINE 100 mg/dL (NEGATIVE); URINE SPECIFIC GRAVITY 1.016; UROBILINOGEN,URINE NEGATIVE mg/dL (<2.0)
[2019-11-21 19:47] LABS: URINE AMPHETAMINES SCREEN NEGATIVE; URINE BARBITURATES SCREEN NEGATIVE; URINE BENZODIAZEPINES SCREEN NEGATIVE; URINE COCAINE SCREEN NEGATIVE; URINE MARIJUANA (THC) SCREEN NEGATIVE; URINE METHADONE SCREEN NEGATIVE; URINE PHENCYCLIDINE SCREEN NEGATIVE
[2019-11-21 20:02] LABS: ABSOLUTE EOSINOPHILS # (AUTO) 0.1 10^3/uL (0.0-0.6); ABSOLUTE LYMPHOCYTES (AUTO) 1.5 10^3/uL (0.5-4.7); ABSOLUTE MONOCYTES (AUTO) 0.7 10^3/uL (0.1-1.4); ABSOLUTE NEUT (AUTO) 8.3 10^3/uL (1.7-8.2); BASOPHILS % (AUTO) 0.5 % (0-2); EOSINOPHILS % (AUTO) 0.6 % (0-6); HEMATOCRIT 29.8 % (36.0-47.0); HEMOGLOBIN 10.3 g/dL (12.0-15.5); LYMPHOCYTES % (AUTO) 14.5 % (13-45); MEAN CORPUSCULAR HEMOGLOBIN 29.4 pg (27.0-33.4); MEAN CORPUSCULAR HGB CONC 34.5 g/dL (32.0-36.0); MEAN CORPUSCULAR VOLUME 85 fl (80-97); MONOCYTES % (AUTO) 6.7 % (3-13); PLATELET COUNT 202 10^3/uL (150-450); RED CELL DISTRIBUTION WIDTH 13.4 % (11.5-14.0); SEGMENTED NEUTROPHILS % (AUTO) 77.7 % (42-78); TOTAL CELLS COUNTED % (AUTO) 100 %; WHITE BLOOD COUNT 10.7 10^3/uL (4.0-10.5)
[2019-11-21] MEDS ORDERED: ZOLPIDEM TARTRATE 5 MG TABLET ONE (21:33)
[2019-11-21] MEDS ORDERED: ZOLPIDEM TARTRATE 5 MG TABLET PO ONE (21:36)
--- NOTE | 2019-11-21 21:39 | Admission Physical ---
Datetime Report Generated by CPN: 11/21/2019 21:39 CURRENT ADMISSION Chief Complaint Other: IOL for mild preE Indication for Induction: PreEclampsia Admit Impression : , Intrauterine ; Induction of Labor Admit Plan: Initiate Labor Induction Protocol ALLERGIES Medication Allergies: No Medication Allergies: No Known Allergies (11/21/2019) Latex: No Latex Allergies Food Allergies: None Environmental Allergies: None OBSTETRICAL HISTORY EDC: 12/11/2019 00:00 : 1 Para: 0 Term: 0 : 0 SAB: 0 IAB: 0 Ectopic: 0 Livin Cesareans: 0 VBACs: 0 Multiple Births: 0 Gestational Diabetes: No Rh Sensitization: No Incompetent Cervix: No LANETTE: No Infertility: No ART Treatment: No Uterine Anomaly: No IUGR: No Hx Previous C/S: No Macrosomia: No Hx Loss/Stillborn: No PIH: No Hx : No Placenta Previa/Abruption: No Depression/PP Depression: No PTL/PROM: No Post Hemorrhage: No Current Procedures: Ultrasound; NST Obstetrical History Comments: G1- current SEE RECORDS Alcohol: No Marijuana : No Cocaine: No Other Illicit Drugs: No Cigarettes: Never Smoker. [id number] MEDICAL HISTORY Diabetes: No Blood Transfusion: No Pulmonary Disease (Asthma, TB): No Breast Disease: No Hypertension: No Non Destructive Testing Scientist Surgery: No Heart Disease: No Hosp/Surgery: Yes Autoimmune Disorder: No Anesthetic Complications: No Kidney Disease: No Abnormal Pap Smear: No Neuro/Epilepsy: No Psychiatric Disorders: No Other Medical Diseases: No Hepatitis/Liver Disease: No Significant Family History: No Varicosities/Phlebitis: No Trauma/Violence : No Thyroid Dysfunction: No Medical History Comments: wisdom teeth in 2013 INFECTIOUS HISTORY Gonorrhea: No Genital Herpes: No Chlamydia: No Tuberculosis: No Syphilis: No Hepatitis: No HIV/AIDS Exposure: No Rash or Viral Illness: No HPV: No PHYSICAL EXAM General: Normal HEENT: Normal Neurologic: Normal Thyroid: Normal Heart: Normal Lungs: Normal Breast: Normal Back: Normal Abdomen: Normal Genitourinary Exam: Normal Extremities: Normal DTRs: Normal Pelvic Type: Adequate Vital Signs: Reviewed VAGINAL EXAM Dilatation: 1 Effacement: 50 Station: -2 Contraction Comments: no regular contraction MEMBRANES Pooling: Negative Membranes: Intact FETUS A Monitoring: External US FHR- Baseline: 155 Variability: Marked >25bpm Accelerations: 15X15 Decelerations: None FHR Category: Category I Admit Comment: G1 at 37.1 wks EGA for IOL due to mild preeclampsia diagnosed by elevated B/P and proteinuria -Admit to LDR -NPO and IVFs - GBS negative -Cervix , Cervidil placed at 1944 -PreE labs pending. B/P now mildly elevated no severes and no severe features. Will not start Magnesium sulfate at this time but if progresses to severe then will start. -Anticipate PLANS FOR LABOR AND DELIVERY Labor and Delivery: None Other Pain Management Plans: Unsure Feeding Preference: Breast Benefit of Breast Feed Discussed: Yes Circumcision: N/A INFORMED CONSENT Informed Consent Obtained: Vaginal Delivery; Section Delivery; Induction of Labor; Vacuum/Forceps Assist; Risks, Benefits and Alternatives Discussed Signature: with User ID: Carine : with User ID: Carine [email or web address]
[2019-11-21 22:44] LABS: ALBUMIN 2.9 g/dL (3.5-5.0); ALKALINE PHOSPHATASE 132 U/L (38-126); ANION GAP 8 (5-19); ASPARTATE AMINO TRANSFERASE 21 U/L (14-36); BILIRUBIN,DIRECT 0.4 mg/dL (0.0-0.4); BILIRUBIN,TOTAL 0.4 mg/dL (0.2-1.3); BLOOD UREA NITROGEN 14 mg/dL (7-20); CALCIUM 9.3 mg/dL (8.4-10.2); CARBON DIOXIDE 22 mmol/L (22-30); CHLORIDE 106 mmol/L (98-107); GLUCOSE 74 mg/dL (75-110); POTASSIUM 4.4 mmol/L (3.6-5.0); TOTAL PROTEIN 5.9 g/dL (6.3-8.2); URIC ACID 4.7 mg/dL (2.5-6.2)
[2019-11-22] MEDS ORDERED: CITRIC ACID/SODIUM CITRATE ORAL SOLN 15 ML UDCUP ONE (04:19)
[2019-11-22] MEDS ORDERED: CEFAZOLIN 1 GM/D5W RTU 2 GM/100 ML RTUPB IV ONE (04:19)
[2019-11-22] MEDS ORDERED: PHENYLEPHRINE HCL INJ/PF 10 MG/1 ML SDV ONE (04:33)
[2019-11-22] MEDS ORDERED: ONDANSETRON HCL INJ/PF 4 MG/2 ML SDV ONE (04:33)
[2019-11-22] MEDS ORDERED: MIDAZOLAM 2 MG/2 ML INJ ONE (04:33)
[2019-11-22] MEDS ORDERED: OXYTOCIN 10 UNIT/ML VIAL ONE (04:33)
--- NOTE | 2019-11-22 04:40 | PDOC PROGRESS REPORT ---
Subjective Progress Note for:: 11/22/19 Subjective:: G1 at 37.1 wks EGA undergoing IOL for mild preeclampsia without severe features. SHe recieved cervidil 10mg PV at 1944. SHe changed from 1-2 cm but FHR was noted to increase in the 170 range. IV hydration attempted and her IV site was later found to be infiltrated. A new site was established. Patient was repositioned and O2 used. VSS and afebrile. Continued hydration after new site established but no improvement in FHR. Remains remote from delivery at 2 cm after AROM and clear fluid. D/c with her land her spouse that FHR not responding to intervention. Has minimal variability, Tachycardia and no acels. No decels. Due to remoteness from delivery and not responding to treatment, Recommend primary CS now. RIsks, benefits discussed. Consent signed. WIll proceed with PCS. Nursing dials supervisor notified. Reason For Visit: ,IOL Physical Exam - Physical Exam Vital Signs: Intake & Output 11/20/19 11/21/19 11/22/19 06:59 06:59 06:59 Weight 92.7 kg - Obstetrical Exam Dilation (cm): 2 Effacement (%): 80 Station: -2 Result Laboratory Results: 11/21/19 19:52 11/21/19 22:02 11/21/19 11/21/19 11/21/19 18:40 19:52 19:52 WBC 10.7 H RBC 3.50 L Hgb 10.3 L Hct 29.8 L MCV 85 MCH 29.4 MCHC 34.5 RDW 13.4 Plt Count 202 Seg Neutrophils % 77.7 Sodium Potassium Chloride Carbon Dioxide Anion Gap BUN Creatinine Est GFR ( Amer) Glucose Uric Acid Calcium Total Bilirubin AST Alkaline Phosphatase Total Protein Albumin Urine Color YELLOW Urine Appearance CLOUDY Urine pH 6.0 Ur Specific [place] 1.016 Urine Protein 100 H Urine Glucose (UA) NEGATIVE Urine Ketones NEGATIVE Urine Blood NEGATIVE Urine Nitrite NEGATIVE Ur Leukocyte Esterase LARGE H Urine WBC (Auto) 161 Urine RBC (Auto) 22 Blood Type O POSITIVE Antibody Screen NEGATIVE 11/21/19 22:02 WBC RBC Hgb Hct MCV MCH MCHC RDW Plt Count Seg Neutrophils % Sodium 136.3 L Potassium 4.4 Chloride 106 Carbon Dioxide 22 Anion Gap 8 BUN 14 Creatinine 0.49 L Est GFR ( Amer) > 60 Glucose 74 L Uric Acid 4.7 Calcium 9.3 Total Bilirubin 0.4 AST 21 Alkaline Phosphatase 132 H Total Protein 5.9 L Albumin 2.9 L Urine Color Urine Appearance Urine pH Ur Specific [place] Urine Protein Urine Glucose (UA) Urine Ketones Urine Blood Urine Nitrite Ur Leukocyte Esterase Urine WBC (Auto) Urine RBC (Auto) Blood Type Antibody Screen Assessment & Plan - Diagnosis (1) Preeclampsia Qualifiers: Trimester: third trimester Qualified Code(s): O14.93 - Unspecified pre- eclampsia, third trimester Is this a current diagnosis for this admission?: Yes (2) Preeclampsia Qualifiers: Trimester: third trimester Qualified Code(s): O14.93 - Unspecified pre- eclampsia, third trimester Is this a current diagnosis for this admission?: Yes (3) tachycardia during labor Is this a current diagnosis for this admission?: Yes (4) tachycardia during labor Is this a current diagnosis for this admission?: Yes Plan: Primary delivery - Time Time Spent with patient: 25-34 minutes
[2019-11-22] MEDS ORDERED: HYDROXYZINE PAMOATE 25 MG CAPSULE PO PRN (05:50)
[2019-11-22] MEDS ORDERED: ACETAMINOPHEN 1,000 MG/100 ML RTUPB IV PRN (05:52)
[2019-11-22] MEDS ORDERED: MEASLES,MUMPS&RUBELLA VACC/PF 0.5 ML VIAL SUBCUT PRN ×2 (05:52→08:00)
[2019-11-22] MEDS ORDERED: OXYCODONE-ACETAMINOPHEN 5-325 MG TABLET PO PRN (05:52)
[2019-11-22] MEDS ORDERED: PROMETHAZINE HCL INJ 25 MG/1 ML VIAL IV PRN (05:52)
[2019-11-22] MEDS ORDERED: ACETAMINOPHEN 325 MG TABLET PO PRN (05:52)
[2019-11-22] MEDS ORDERED: HYDROMORPHONE HCL INJ/PF 2 MG/ML AMPULE IV PRN (05:52)
[2019-11-22] MEDS ORDERED: OXYTOCIN/NORMAL SALINE 20 UNIT/1,000 ML RTUINJ IV PRN (05:52)
[2019-11-22] MEDS ORDERED: DIPH/PERTUSS(ACELL)/TETANUS VAC/PF 0.5 ML SYR (>=10YO) IM PRN ×2 (05:52→08:00)
[2019-11-22] MEDS ORDERED: OXYTOCIN/NORMAL SALINE 20 UNIT/1,000 ML RTUINJ ONE (05:54)
[2019-11-22] MEDS ORDERED: ACETAMINOPHEN 1,000 MG/100 ML RTUPB IV ONE (05:54)
--- NOTE | 2019-11-22 06:01 | Warning Signs in Babies ---
VOD Warning Signs Datetime Report Generated by [facility]: 11/22/2019 06:01 VOD#[id number] -Warning Signs in Babies: Needs to be viewed. (11/22/2019 05:48:Valeria Epperson RN)
--- NOTE | 2019-11-22 06:04 | Operative Report ---
Operative Report DATE OF SURGERY: 11/22/19 PREOPERATIVE DIAGNOSIS: 37.1 week Intrauterine . Mild preeclampsia. Non-reassuring heart tracing: tachycardia and minimal variability POSTOPERATIVE DIAGNOSIS: Same as above OPERATION: Primary section SURGEON: DIALLO MORAN ANESTHESIA: Spinal TISSUE REMOVED OR ALTERED: Placenta COMPLICATIONS: None PROCEDURE: IV fluids: per anesthesia record 1400 cc Urinary output: 200 cc Findings: Normal-appearing uterus bilateral fallopian tubes and ovaries. Viable female with Apgars of 8 and 8 at one and 5 minutes respectfully Position: To recovery room in stable condition Description of procedure: The patient was taken to the operating room and spinal anesthesia was administered and found to be adequate. She was then placed on the OR table in the supine position with a slight leftward tilt. Patient was prepped and draped in usual sterile fashion. Ancef 2 gms was given IV prior to the procedure for infection prophylaxis. Timeout was taken. A Pfannenstiel skin incision was then made approximately 3 cm above the pubic symphysis and carried down to level the rectus fascia. The rectus fascia was then nicked in the midline with a scalpel and the fascial incision was extended laterally with use of curved Marin scissors. The rectus fascia was then grasped with 2 Kocker clamps elevated and the underlying rectus muscle was dissected off both bluntly and sharply. Any bleeding controlled with cautery. The rectus muscles were then split in the midline and the peritoneum was entered. The peritoneal incision was then extended by manually stretching the peritoneum. The bladder blade was positioned. The bladder was noted to be out of harm's way. A scalpel was then used in the lower uterine for the hysterotomy, slowly until amniotomy was obtained a large amount of fluid was noted. The uterine incision was then manually stretched. The was noted to be in vertex postion -deep in the pelvis. Using a hand deep in pelvis, the head was elevated and brought to the hysterotomy incision. The head then delivered with minmal difficulty. The shoulders and the rest of the body followed immediately. Cord was noted around the neck and body but able to delivery through. The cord was cut clamped and the was handed off to the nurse awaiting. Infant was crying prior to hand off. The placenta was manually delivered. Using a lap gauze the uterus was cleared of all clots and debris. The uterus was then exteriorized and a bladder blade was repositioned. The uterine incision was then closed with 0 Chromic suture in a running locked fashion. A second layer of the same suture was used in a running locked imbricated fashion. The uterine incision was inspected and noted to be hemostatic. Retractor was removed. The posterior aspect of the uterus was then inspected and anatomy was seen as above. The uterus was returned to its normal anatomic position within the abdominal cavity. Warm saline irrigation was used to clear all clots and debris from the abdomen. The uterine incision was inspected once more and noted to remain hemostatic. The bladder blade was removed and the peritoneum was closed with 2-0 chromic in a running fashion. The rectus muscles were then reapproximated and the rectus fascia was closed with a #1 PDS in a running fashion. The subcutaneous tissue was then inspected and any bleeding was controlled with Bovie electrocautery. The subcutaneous tissue was then closed with 2-0 Plain Gut suture in a running fashion. The skin was then closed with 3-0 Monocryl in a running subcuticular fashion. The skin incision was then clean dried and Dermabond was applied over the skin incision. All instrument sponge and needle counts were correct x3 for the procedure the patient tolerated the procedure well. She will proceed to recovery room in stable condition
[2019-11-22] MEDS ORDERED: FENTANYL CITRATE INJ/PF 100 MCG/2 ML AMPUL ONE (07:07)
[2019-11-22] MEDS ORDERED: KETOROLAC TROMETHAMINE INJ/PF 30 MG/1 ML SDV ONE (07:07)
[2019-11-22] MEDS: KETOROLAC TROMETHAMINE INJ/PF 30 MG/1 ML SDV IV SCH ×3 (07:09→23:07)
[2019-11-22] MEDS ORDERED: FUROSEMIDE INJ/PF 40 MG/4 ML SDV IV ONE (08:00)
[2019-11-22] MEDS: OXYCODONE-ACETAMINOPHEN 5-325 MG TABLET PO PRN ×3 (09:21→23:06)
[2019-11-22] MEDS: DOCUSATE SODIUM 100 MG CAPSULE PO SCH ×2 (10:27→17:49)
[2019-11-22] MEDS: PRENATAL VITAMIN W DHA CAPSULE PO SCH (10:27)
[2019-11-22] MEDS ORDERED: PROMETHAZINE HCL 25 MG TABLET PO PRN (21:00)
[2019-11-22] MEDS: IBUPROFEN 800 MG TABLET PO SCH (21:20)
[2019-11-23] MEDS: IBUPROFEN 800 MG TABLET PO SCH ×3 (05:33→21:02)
[2019-11-23 07:03] LABS: HEMOGLOBIN 9.5 g/dL (12.0-15.5); MEAN CORPUSCULAR HEMOGLOBIN 29.4 pg (27.0-33.4); MEAN CORPUSCULAR HGB CONC 34.1 g/dL (32.0-36.0); MEAN CORPUSCULAR VOLUME 86 fl (80-97); PLATELET COUNT 204 10^3/uL (150-450); RED BLOOD COUNT 3.25 10^6/uL (3.72-5.28); RED CELL DISTRIBUTION WIDTH 13.5 % (11.5-14.0); WHITE BLOOD COUNT 11.9 10^3/uL (4.0-10.5)
[2019-11-23] MEDS: OXYCODONE-ACETAMINOPHEN 5-325 MG TABLET PO PRN ×2 (08:16→20:48)
[2019-11-23] MEDS: DOCUSATE SODIUM 100 MG CAPSULE PO SCH ×2 (09:48→17:30)
[2019-11-23] MEDS: PRENATAL VITAMIN W DHA CAPSULE PO SCH (09:48)
--- NOTE | 2019-11-23 10:41 | PDOC PROGRESS REPORT ---
Subjective-OB Progress Note for:: 11/23/19 Subjective: Pt doing well, sitting in NICU baby. She reports light bleeding, reg diet, +flatus and voiding without difficulty. Physical Exam (OB) Vital Signs: Temp Pulse Resp BP Pulse Ox 98.0 F 106 H 18 132/87 H 99 11/23/19 07:58 11/23/19 07:58 11/23/19 07:58 11/23/19 07:58 11/23/19 07:58 Intake & Output 11/22/19 11/23/19 11/24/19 06:59 06:59 06:59 Intake Total 640 Output Total 1225 Balance -585 Weight 92.7 kg - PIH/Pre-Eclampsia DTR's: 1 + Clonus: Negative Headache: Absent Epigastric Pain: No Visual Changes: No - Dressing Removed: No Incision: Well Approximated Closure Type: Surgical Glue - Lochia Lochia Amount: Scant < 10 ml Lochia Color: Rubra/Red - Abdomen Description: Soft, Round Hernia Present: No Fundal Description: Firm, Midline Fundal Height: u/u - u/2 Objective-Diagnostic Laboratory: 11/23/19 06:48 11/21/19 22:02 11/23/19 06:48 WBC 11.9 H RBC 3.25 L Hgb 9.5 L Hct 28.0 L MCV 86 MCH 29.4 MCHC 34.1 RDW 13.5 Plt Count 204 Assessment and Plan(PN) - Assessment and Plan (1) delivery delivered Is this a current diagnosis for this admission?: Yes (2) tachycardia during labor Is this a current diagnosis for this admission?: Yes (3) Preeclampsia Qualifiers: Trimester: third trimester Qualified Code(s): O14.93 - Unspecified pre-ecla mpsia, third trimester Is this a current diagnosis for this admission?: Yes - Time Spent with Patient Time with patient: Less than 15 minutes Medications reviewed and adjusted accordingly: Yes - Disposition Anticipated Discharge: Home Within: within 24 hours
[2019-11-23] MEDS: SIMETHICONE 80 MG TAB.CHEW PO PRN (20:48)
[2019-11-24] MEDS: IBUPROFEN 800 MG TABLET PO SCH ×3 (05:06→23:10)
[2019-11-24] MEDS ORDERED: IRON SUCROSE COMPLEX INJ/PF 100 MG/5 ML SDV IV ONE (10:40)
[2019-11-24] MEDS: DOCUSATE SODIUM 100 MG CAPSULE PO SCH ×2 (10:55→17:13)
[2019-11-24] MEDS: PRENATAL VITAMIN W DHA CAPSULE PO SCH (10:55)
--- NOTE | 2019-11-24 11:26 | PDOC PROGRESS REPORT ---
Subjective Progress Note for:: 11/24/19 Subjective:: Pt states that she feels good. She states that her pain is controlled. She reports decreasing lochia, SOB, F/C and N/V. She will stay another day. Reason For Visit: ,IOL Physical Exam - Physical Exam Vital Signs: Temp Pulse Resp BP Pulse Ox 97.5 F 108 H 18 127/92 H 100 11/24/19 04:44 11/24/19 04:44 11/24/19 04:44 11/24/19 04:44 11/24/19 04:44 Intake & Output 11/23/19 11/24/19 11/25/19 06:59 06:59 06:59 Intake Total 640 500 Output Total 1225 Balance -585 500 General appearance: PRESENT: no acute distress Respiratory exam: PRESENT: clear to auscultation maurice Cardiovascular exam: PRESENT: RRR GI/Abdominal exam: PRESENT: normal bowel sounds, soft - appropriate tenderness; incision C/D/I Extremities exam: ABSENT: calf tenderness, clubbing, full ROM, joint swelling, pedal edema, tenderness, +1 edema, +2 edema, other - Obstetrical Exam Station: -2 Result Laboratory Results: 11/23/19 06:48 11/21/19 22:02 Assessment & Plan - Diagnosis (1) delivery delivered Is this a current diagnosis for this admission?: Yes (2) tachycardia during labor Is this a current diagnosis for this admission?: Yes (3) Preeclampsia Qualifiers: Trimester: third trimester Qualified Code(s): O14.93 - Unspecified pre-eclampsia, third trimester Is this a current diagnosis for this admission?: Yes - Time Time Spent with patient: 15-24 minutes Within: within 24 hours - Plan Summary Plan Summary: Continue current care
[2019-11-24] MEDS: SIMETHICONE 80 MG TAB.CHEW PO PRN (23:19)
[2019-11-25] MEDS: IBUPROFEN 800 MG TABLET PO SCH ×2 (06:14→14:42)
--- NOTE | 2019-11-25 09:31 | PDOC PROGRESS REPORT ---
Subjective-OB Progress Note for:: 11/25/19 Subjective: Ready for discharge. Physical Exam (OB) Vital Signs: Temp Pulse Resp BP Pulse Ox 98.0 F 103 H 16 128/80 H 96 11/25/19 07:36 11/25/19 07:36 11/25/19 07:36 11/25/19 07:36 11/25/19 07:36 Intake & Output 11/24/19 11/25/19 11/26/19 06:59 06:59 06:59 Intake Total 500 Balance 500 - PIH/Pre-Eclampsia DTR's: 1 + Clonus: Negative Headache: Absent Epigastric Pain: No Visual Changes: No - Dressing Removed: No Incision: Open, Well Approximated Closure Type: Surgical Glue - Lochia Lochia Amount: Scant < 10 ml Lochia Color: Rubra/Red - Abdomen Description: Soft, Round Hernia Present: No Bowel Sounds: Normoactive Flatus Presence: Present Stool: Yes Fundal Description: Firm, Midline Fundal Height: u/u - u/2 Objective-Diagnostic Laboratory: 11/23/19 06:48 11/21/19 22:02 Assessment and Plan(PN) - Time Spent with Patient Medications reviewed and adjusted accordingly: Yes - Disposition Anticipated Discharge: Home
--- NOTE | 2019-11-25 09:36 | PDOC DISCHARGE SUMMARY ---
Impression - Admit/DC Date/PCP Admission Date/Primary Care Provider: 11/21/19 18:31 DIALLO MORAN MD Discharge Date: 11/25/19 - Discharge Diagnosis (1) delivery delivered Is this a current diagnosis for this admission?: Yes (2) tachycardia during labor Is this a current diagnosis for this admission?: Yes (3) Preeclampsia Is this a current diagnosis for this admission?: Yes - Additional Information Resuscitation Status: Full Code Discharge Diet: Regular Discharge Activity: Activity As Tolerated, Balance Activity w/Rest, No Lifting Over 10 Pounds, No Lifting/Push/Pulling, Pelvic Rest, Slowly Increase Activity, No tub bath Referrals: DIALLO MORAN MD [Primary Care Provider] - Home Medications: Prenat 115/Iron Fum/Folic/Dss [ 19 Tablet] 1 tab PO DAILY 10/28/19 Promethazine HCl 12.5 mg PO DAILY 11/17/19 Hydroxyzine Pamoate [Vistaril 25 mg Capsule] 25 mg PO DAILY 11/20/19 HPI Gestational Age: 37 wks Reason(s) for Admission: Induction of Labor, PIH Procedures: Ultrasound Intrapartum Procedure(s): : Low Cervical, Transverse Results Laboratory Results: WBC 11.9 10^3/uL (4.0-10.5) H 11/23/19 06:48 RBC 3.25 10^6/uL (3.72-5.28) L 11/23/19 06:48 Hgb 9.5 g/dL (12.0-15.5) L 11/23/19 06:48 Hct 28.0 % (36.0-47.0) L 11/23/19 06:48 MCV 86 fl (80-97) 11/23/19 06:48 MCH 29.4 pg (27.0-33.4) 11/23/19 06:48 MCHC 34.1 g/dL (32.0-36.0) 11/23/19 06:48 RDW 13.5 % (11.5-14.0) 11/23/19 06:48 Plt Count 204 10^3/uL (150-450) 11/23/19 06:48 Lymph % (Auto) 14.5 % (13-45) 11/21/19 19:52 [place] % (Auto) 6.7 % (3-13) 11/21/19 19:52 Eos % (Auto) 0.6 % (0-6) 11/21/19 19:52 Baso % (Auto) 0.5 % (0-2) 11/21/19 19:52 Absolute Neuts (auto) 8.3 10^3/uL (1.7-8.2) H 11/21/19 19:52 Absolute Lymphs (auto) 1.5 10^3/uL (0.5-4.7) 11/21/19 19:52 Absolute Monos (auto) 0.7 10^3/uL (0.1-1.4) 11/21/19 19:52 Absolute Eos (auto) 0.1 10^3/uL (0.0-0.6) 11/21/19 19:52 Absolute Basos (auto) 0.0 10^3/uL (0.0-0.2) 11/21/19 19:52 Seg Neutrophils % 77.7 % (42-78) 11/21/19 19:52 Sodium 136.3 mmol/L (137-145) L 11/21/19 22:02 Potassium 4.4 mmol/L (3.6-5.0) 11/21/19 22:02 Chloride 106 mmol/L (98-107) 11/21/19 22:02 Carbon Dioxide 22 mmol/L (22-30) 11/21/19 22:02 Anion Gap 8 (5-19) 11/21/19 22:02 BUN 14 mg/dL (7-20) 11/21/19 22:02 Creatinine 0.49 mg/dL (0.52-1.25) L 11/21/19 22:02 Est GFR ( Amer) > 60 (>60) 11/21/19 22:02 Est GFR (MDRD) Non-Af > 60 (>60) 11/21/19 22:02 Glucose 74 mg/dL (75-110) L 11/21/19 22:02 Uric Acid 4.7 mg/dL (2.5-6.2) 11/21/19 22:02 Calcium 9.3 mg/dL (8.4-10.2) 11/21/19 22:02 Total Bilirubin 0.4 mg/dL (0.2-1.3) 11/21/19 22:02 Direct Bilirubin 0.4 mg/dL (0.0-0.4) 11/21/19 22:02 Neonat Total Bilirubin Not Reportable 11/21/19 22:02 Neonat Direct Bilirubin Not Reportable 11/21/19 22:02 Neonat Indirect Bili Not Reportable 11/21/19 22:02 AST 21 U/L (14-36) 11/21/19 22:02 ALT 13 U/L (<35) 11/21/19 22:02 Alkaline Phosphatase 132 U/L (38-126) H 11/21/19 22:02 Lactate Dehydrogenase 183 U/L (120-246) 11/21/19 22:02 Total Protein 5.9 g/dL (6.3-8.2) L 11/21/19 22:02 Albumin 2.9 g/dL (3.5-5.0) L 11/21/19 22:02 Urine Color YELLOW 11/21/19 18:40 Urine Appearance CLOUDY 11/21/19 18:40 Urine pH 6.0 (5.0-9.0) 11/21/19 18:40 Ur Specific [place] 1.016 11/21/19 18:40 Urine Protein 100 mg/dL (NEGATIVE) H 11/21/19 18:40 Urine Glucose (UA) NEGATIVE mg/dL (NEGATIVE) 11/21/19 18:40 Urine Ketones NEGATIVE mg/dL (NEGATIVE) 11/21/19 18:40 Urine Blood NEGATIVE (NEGATIVE) 11/21/19 18:40 Urine Nitrite NEGATIVE (NEGATIVE) 11/21/19 18:40 Urine Bilirubin NEGATIVE (NEGATIVE) 11/21/19 18:40 Urine Urobilinogen NEGATIVE mg/dL (<2.0) 11/21/19 18:40 Ur Leukocyte Esterase LARGE (NEGATIVE) H 11/21/19 18:40 Urine WBC (Auto) 161 /HPF 11/21/19 18:40 Urine RBC (Auto) 22 /HPF 11/21/19 18:40 Urine Bacteria (Auto) TRACE /HPF 11/21/19 18:40 Squamous Epi Cells Auto 12 /HPF 11/21/19 18:40 Urine Mucus (Auto) OCC /LPF 11/21/19 18:40 Urine Ascorbic Acid NEGATIVE (NEGATIVE) 11/21/19 18:40 Urine Opiates Screen NEGATIVE 11/21/19 18:40 Urine Methadone Screen NEGATIVE 11/21/19 18:40 Ur Barbiturates Screen NEGATIVE 11/21/19 18:40 Ur Phencyclidine Scrn NEGATIVE 11/21/19 18:40 Ur Amphetamines Screen NEGATIVE 11/21/19 18:40 U Benzodiazepines Scrn NEGATIVE 11/21/19 18:40 Urine Cocaine Screen NEGATIVE 11/21/19 18:40 U Marijuana (THC) Screen NEGATIVE 11/21/19 18:40 RPR NONREACTIVE (NONREACTIVE) 11/21/19 19:52 Blood Type O POSITIVE 11/21/19 19:52 Antibody Screen NEGATIVE 11/21/19 19:52 Plan Time Spent: Less than 30 Minutes
[2019-11-25] MEDS: PRENATAL VITAMIN W DHA CAPSULE PO SCH (09:44)
[2019-11-25] MEDS: DOCUSATE SODIUM 100 MG CAPSULE PO SCH ×2 (09:44→17:18)
[2019-11-25 14:59] VITALS: BP 134/88
== END 2019-11-25 17:36 | disposition home or self-care (01) | DRG 788 ==
LOC: LR 18:31 → 2S 11-22 09:00
PROVIDERS: ADMIT Obstetrics & Gynecology; ATTEND Obstetrics & Gynecology
PROC: 10D00Z1 Extraction of Products of Conception, Low, Open Approach (ICD-10-PCS; principal; 2019-11-22)
DX: O14.04 Mild to moderate pre-eclampsia, complicating childbirth (principal); O76 Abnormality in fetal heart rate and rhythm complicating labor and delivery; Z37.0 Single live birth; Z3A.37 37 weeks gestation of pregnancy; O69.81X0 Labor and delivery complicated by cord around neck, without compression, not applicable or unspecified
CPT/HCPCS: 1961; 36415; 80053; 80307; 81001; 83615; 84550; 85025; 85027; 86592; 86850; 86900; 86901; 88307; 94799; J0131; J0690; J1170; J1885; J2250; J2370; J2405; J2590; J3010; J3490

== ENCOUNTER 2019-11-26 14:00 | Emergency (ER) | payer OTHER ==
[2019-11-26 14:09] VITALS: BP 144/92
--- NOTE | 2019-11-26 14:20 | ER Document Report ---
ED Medical Screen (RME) - General Chief Complaint: Leg Pain Stated Complaint: LEG PAIN,HEADACHE,DIZZINESS Time Seen by Provider: 11/26/19 14:16 Primary Care Provider: DIALLO MORAN MD [Primary Care Provider] - Follow up as needed Notes: 19-year-old female who recently gave presents for lower extremity pain and swelling that started last night. Patient also states she has been having some intermittent dizziness and headaches. Bilateral lower extremities are swollen approximately 1+ pitting edema with tenderness. No erythema. Not hot to touch. I have greeted and performed a rapid initial assessment of this patient. A comprehensive ED assessment and evaluation of the patient, analysis of test results and completion of the medical decision making process with be conducted by additional ED providers. TRAVEL OUTSIDE OF THE [place] IN LAST 30 DAYS: No - Related Data Allergies/Adverse Reactions: No Known Allergies Allergy (Verified 11/26/19 14:12) Past Medical History Renal/ Medical History: Denies: Hx Peritoneal Dialysis Physical Exam - Vital signs Vitals: Temp Pulse Resp BP Pulse Ox 98.5 F 72 16 144/92 H 97 11/26/19 14:06 11/26/19 14:06 11/26/19 14:06 11/26/19 14:06 11/26/19 14:06 Course - Vital Signs Vital signs: Temp Pulse Resp BP Pulse Ox 98.5 F 72 16 144/92 H 97 11/26/19 14:06 11/26/19 14:06 11/26/19 14:06 11/26/19 14:06 11/26/19 14:06 Doctor's Discharge - Discharge Referrals: DIALLO MORAN MD [Primary Care Provider] - Follow up as needed
[2019-11-26 14:46] LABS: ABSOLUTE BASOPHILS # (AUTO) 0.1 10^3/uL (0.0-0.2); ABSOLUTE EOSINOPHILS # (AUTO) 0.3 10^3/uL (0.0-0.6); ABSOLUTE LYMPHOCYTES (AUTO) 1.6 10^3/uL (0.5-4.7); ABSOLUTE MONOCYTES (AUTO) 0.6 10^3/uL (0.1-1.4); ABSOLUTE NEUT (AUTO) 9.5 10^3/uL (1.7-8.2); BASOPHILS % (AUTO) 0.9 % (0-2); EOSINOPHILS % (AUTO) 2.4 % (0-6); HEMATOCRIT 32.6 % (36.0-47.0); HEMOGLOBIN 10.8 g/dL (12.0-15.5); LYMPHOCYTES % (AUTO) 13.1 % (13-45); MEAN CORPUSCULAR HEMOGLOBIN 28.6 pg (27.0-33.4); MEAN CORPUSCULAR VOLUME 87 fl (80-97); MONOCYTES % (AUTO) 4.8 % (3-13); PLATELET COUNT 361 10^3/uL (150-450); RED BLOOD COUNT 3.76 10^6/uL (3.72-5.28); SEGMENTED NEUTROPHILS % (AUTO) 78.8 % (42-78); TOTAL CELLS COUNTED % (AUTO) 100 %; WHITE BLOOD COUNT 12.1 10^3/uL (4.0-10.5)
[2019-11-26 14:53] LABS: INTERNATIONAL RATION (INR) 0.89; PARTIAL THROMBOPLASTIN TIME 28.8 SEC (23.5-35.8)
[2019-11-26 15:05] LABS: ALBUMIN 3.3 g/dL (3.5-5.0); ALKALINE PHOSPHATASE 119 U/L (38-126); ANION GAP 8 (5-19); ASPARTATE AMINO TRANSFERASE 29 U/L (14-36); BILIRUBIN,DIRECT 0.3 mg/dL (0.0-0.4); BILIRUBIN,TOTAL 0.3 mg/dL (0.2-1.3); BLOOD UREA NITROGEN 16 mg/dL (7-20); CALCIUM 9.1 mg/dL (8.4-10.2); CARBON DIOXIDE 25 mmol/L (22-30); CHLORIDE 105 mmol/L (98-107); POTASSIUM 4.6 mmol/L (3.6-5.0); TOTAL PROTEIN 6.5 g/dL (6.3-8.2)
[2019-11-26 15:10] LABS: GLUCOSE 62 mg/dL (75-110)
--- NOTE | 2019-11-26 15:38 | ER Document Report ---
ED Extremity Problem, Lower - General Chief Complaint: Leg Pain Stated Complaint: LEG PAIN,HEADACHE,DIZZINESS Time Seen by Provider: 11/26/19 14:16 Primary Care Provider: DIALLO MORAN MD [Primary Care Provider] - Follow up as needed Notes: This 19-year-old woman presents to the emergency department with a history of C- section which was performed on 11/22/2019. She states that last night she began having pain in the lower extremities left greater than right involving the posterior aspect of the lower leg and continued swelling in her ankles and feet. She is concerned that she may have developed a blood clot. She has not use any medications for pain presently no other risk factors for DVT. She is not a smo ker and does not use any medications. She has a history of preeclampsia. TRAVEL OUTSIDE OF THE [place] IN LAST 30 DAYS: No - Related Data Allergies/Adverse Reactions: No Known Allergies Allergy (Verified 11/26/19 14:12) Past Medical History - Social History Smoking Status: Unknown if Ever Smoked Chew tobacco use (# tins/day): No Frequency of alcohol use: None Drug Abuse: None Family History: Reviewed & Not Pertinent Patient has suicidal ideation: No Patient has homicidal ideation: No Renal/ Medical History: Denies: Hx Peritoneal Dialysis Review of Systems - Review of Systems Notes: Constitutional: Negative for fever. HENT: Negative for sore throat. Eyes: Negative for visual changes. Cardiovascular: Negative for chest pain. Respiratory: Negative for shortness of breath. Gastrointestinal: Negative for abdominal pain, vomiting or diarrhea. Genitourinary: Negative for dysuria. Musculoskeletal: + Bilateral lower extremity pain, + swelling lower extremities Skin: Negative for rash. Neurological: Negative for headaches, weakness or numbness. 10 point ROS negative except as marked above and in HPI. Physical Exam - Vital signs Vitals: Temp Pulse Resp BP Pulse Ox 98.5 F 72 16 144/92 H 97 11/26/19 14:06 11/26/19 14:06 11/26/19 14:06 11/26/19 14:06 11/26/19 14:06 - Notes Notes: PHYSICAL EXAMINATION: Physical Exam: General: Well-nourished well-developed in no acute distress HEENT: NC/AT, pupils equal round and reactive to light, MM moist,nares clear, Neck: supple, no adenopathy, no masses. Lungs: clear, no wheezing, no rales no rhonchi CVS: Regular rate and rhythm no murmur gallop or rub Abdomen: Soft active nontender, no masses, no hepatosplenomegaly Ext: + Tenderness in the posterior aspect of the lower extremities bilaterally, swelling in the feet and ankles bilaterally lower extremities, good range of motion at the knees without swelling no posterior popliteal tenderness or discomfort. Neuro: Alert and responsive, moving all 4 extremities on command, cranial nerves intact. Skin: Intact no open lesions, no rash PSYCH: Normal mood, normal affect. Course - Re-evaluation Re-evalutation: 11/26/19 18:17 Presenting with bilateral leg swelling and pain, she was concerned about possible blood clot., Doppler ultrasound is negative. I have discussed the findings of the ultrasound with the patient and explained to her that the swelling is probably related to the hormonal change of and fluid used during the surgery. She is instructed to elevate her legs and may use Tylenol f or pain. She should follow-up with her RESIDENTIAL ASSISTANT per the schedule appointment. Patient acknowledges understanding of this plan and is in agreement. - Vital Signs Vital signs: Temp Pulse Resp BP Pulse Ox 98.5 F 72 16 144/92 H 97 11/26/19 14:06 11/26/19 14:06 11/26/19 14:06 11/26/19 14:06 11/26/19 14:06 - Laboratory Result Diagrams: 11/26/19 14:30 11/26/19 14:30 Laboratory results interpreted by me: 11/26/19 11/26/19 14:30 14:30 WBC 12.1 H Hgb 10.8 L Hct 32.6 L Absolute Neuts (auto) 9.5 H Seg Neutrophils % 78.8 H Glucose 62 L Albumin 3.3 L Discharge - Discharge Clinical Impression: Bilateral edema of lower extremity Condition: Good Disposition: HOME, SELF-CARE Instructions: Edema, Peripheral ([facility]) Additional Instructions: You were diagnosed with bilateral lower extremity edema and emergency department today. Please elevate your legs, use Tylenol for pain, follow-up with your doctor as needed. If you experience worsening symptoms or other concerns you may return to the emergency department for further evaluation and treatment. Referrals: DIALLO MORAN MD [Primary Care Provider] - Follow up as needed
--- NOTE | 2019-11-28 13:30 | XCELERA REPORT ---
[address] [facility] [address] Lower Extremity Venous Evaluation Procedure: Color flow and duplex imaging bilaterally of the veins of the lower extremities as well as the Common Femoral veins. Right Sided Venous Evaluation Normal vessel filling wall to wall, compression and augmentation as well as Colour flow down to the infrageniculate veins. Left Sided Venous Evaluation Normal vessel filling wall to wall, compression and augmentation as well as Colour flow down to the infrageniculate veins. Interpretation Summary No duplex evidence of DVT or obstruction in the bilateral lower extremities. Name: THOMPSON CARMICHAEL Age: 19 yrs Gender: Female : 2000 Patient Status: Emergency Patient Location: ER Study Date: 11/26/2019 04:23 PM Reason For Study: bilateral LE swelling/pain, recent delivery Ordering Physician: ISELA ROBLERO Performed By: Miri Bergman : ISELA ROBLERO > Moe Albright
== END 2019-11-26 18:59 | disposition home or self-care (01) ==
LOC: ER 14:00
DX: O12.05 Gestational edema, complicating the puerperium (principal); R51 Headache; R42 Dizziness and giddiness
CPT/HCPCS: 36415; 80053; 85025; 85610; 85730; 93970; 99284

== ENCOUNTER 2020-08-29 01:07 | Emergency (ER) | payer OTHER ==
--- NOTE | 2020-08-29 01:45 | ER Document Report ---
ED Medical Screen (RME) - General Stated Complaint: SUICIDAL IDEATION Time Seen by Provider: 08/29/20 01:35 Primary Care Provider: VELIA NOLASCO MD [Primary Care Provider] - Follow up as needed Mode of Arrival: Ambulatory Information source: Patient Notes: 20-year-old female here because of Unisom overdose. It was intentional. Having problems with her . History of depression. Not taking sertraline. General exam: Tearful, sedated Psych: Suicidal ideation cooperative I have greeted and performed a rapid initial assessment of this patient. A comprehensive ED assessment and evaluation of the patient, analysis of test results and completion of the medical decision making process will be conducted by additional ED providers. TRAVEL OUTSIDE OF THE [place] IN LAST 30 DAYS: No - Related Data Allergies/Adverse Reactions: No Known Allergies Allergy (Verified 11/26/19 14:12) Past Medical History Renal/ Medical History: Denies: Hx Peritoneal Dialysis Doctor's Discharge - Discharge Referrals: VELIA NOLASCO MD [Primary Care Provider] - Follow up as needed
[2020-08-29 02:14] LABS: APPEARANCE,URINE SLIGHTLY-CLOUDY; BILIRUBIN,URINE NEGATIVE (NEGATIVE); COLOR,URINE YELLOW; GLUCOSE, URINE NEGATIVE (NEGATIVE); KETONES,URINE TRACE mg/dL (NEGATIVE); LEUKOCYTE ESTERASE,URINE SMALL (NEGATIVE); NITRITE,URINE NEGATIVE (NEGATIVE); PROTEIN,URINE 30 mg/dL (NEGATIVE); URINE SPECIFIC GRAVITY 1.028; UROBILINOGEN,URINE NEGATIVE mg/dL (<2.0)
[2020-08-29 02:25] LABS: URINE AMPHETAMINES SCREEN NEGATIVE; URINE BARBITURATES SCREEN NEGATIVE; URINE BENZODIAZEPINES SCREEN NEGATIVE; URINE COCAINE SCREEN NEGATIVE; URINE MARIJUANA (THC) SCREEN NEGATIVE; URINE METHADONE SCREEN NEGATIVE; URINE PHENCYCLIDINE SCREEN NEGATIVE
[2020-08-29 02:25] LABS: ABSOLUTE LYMPHOCYTES (AUTO) 1.6 10^3/uL (0.5-4.7); ABSOLUTE MONOCYTES (AUTO) 0.6 10^3/uL (0.1-1.4); ABSOLUTE NEUT (AUTO) 6.7 10^3/uL (1.7-8.2); BASOPHILS % (AUTO) 0.4 % (0-2); EOSINOPHILS % (AUTO) 0.5 % (0-6); HEMATOCRIT 35.8 % (36.0-47.0); HEMOGLOBIN 12.5 g/dL (12.0-15.5); LYMPHOCYTES % (AUTO) 17.7 % (13-45); MEAN CORPUSCULAR HEMOGLOBIN 30.3 pg (27.0-33.4); MEAN CORPUSCULAR HGB CONC 34.8 g/dL (32.0-36.0); MEAN CORPUSCULAR VOLUME 87 fl (80-97); MONOCYTES % (AUTO) 6.9 % (3-13); PLATELET COUNT 223 10^3/uL (150-450); RED BLOOD COUNT 4.12 10^6/uL (3.72-5.28); RED CELL DISTRIBUTION WIDTH 13.2 % (11.5-14.0); SEGMENTED NEUTROPHILS % (AUTO) 74.5 % (42-78); TOTAL CELLS COUNTED % (AUTO) 100 %
[2020-08-29 03:00] LABS: ALBUMIN 3.8 g/dL (3.5-5.0); BLOOD UREA NITROGEN 10 mg/dL (7-20); CARBON DIOXIDE 25 mmol/L (22-30); CHLORIDE 106 mmol/L (98-107); TOTAL PROTEIN 6.4 g/dL (6.3-8.2)
[2020-08-29 03:12] LABS: ALKALINE PHOSPHATASE 63 U/L (38-126); ANION GAP 10 (5-19); ASPARTATE AMINO TRANSFERASE 25 U/L (14-36); BILIRUBIN,DIRECT 0.1 mg/dL (0.0-0.4); BILIRUBIN,TOTAL 0.4 mg/dL (0.2-1.3); CALCIUM 9.4 mg/dL (8.4-10.2); GLUCOSE 123 mg/dL (75-110); POTASSIUM 3.3 mmol/L (3.6-5.0)
[2020-08-29 03:16] LABS: ACETAMINOPHEN < 10 ug/mL (10-30); ALCOHOL < 10 mg/dL (NONE DETECTED); SALICYLATE < 1.0 mg/dL (2.0-20.0)
--- NOTE | 2020-08-29 03:23 | ER Document Report ---
ED Psych Disorder / Suicide - General Chief Complaint: Overdose Stated Complaint: SUICIDAL IDEATION Time Seen by Provider: 08/29/20 01:35 Primary Care Provider: VELIA NOLASCO MD [ACTIVE STAFF] - Follow up as needed Mode of Arrival: Ambulatory TRAVEL OUTSIDE OF THE [place] IN LAST 30 DAYS: No - HPI Notes: 20-year-old female to the emergency department by EMS with complaints of intentional overdose tonight. She states she took about 30 Unisom. She did this and intent to hurt her self. She states she and her have been struggling and fighting and she has been feeling suicidal. She has a history of depression but is not currently on any psychotropic medications. She denies any HI, hallucinations. She states that initially after she took the medicine she vomited one up. When medics got to her home they called poison control and she was given activated charcoal as well as 400 mL of LR. Patient states she feels drowsy but otherwise has no other complaints. She has never been hospitalized for any psychotropic issues. - Related Data Allergies/Adverse Reactions: No Known Allergies Allergy (Verified 11/26/19 14:12) Past Medical History - General Information source: Patient - Social History Smoking Status: Never Smoker Chew tobacco use (# tins/day): No Frequency of alcohol use: None Drug Abuse: None Family History: Reviewed & Not Pertinent Patient has homicidal ideation: No Renal/ Medical History: Denies: Hx Peritoneal Dialysis Psychiatric Medical History: Reports: Hx Depression Review of Systems - Review of Systems Constitutional: denies: Chills, Fever Cardiovascular: denies: Chest pain, Palpitations, Dizziness, Lightheaded, Edema Respiratory: denies: Cough, Short of breath Gastrointestinal: Vomiting - one episode of vomiting. denies: Abdominal pain, Diarrhea, Nausea Genitourinary: No symptoms reported Musculoskeletal: No symptoms reported Skin: No symptoms reported Hematologic/Lymphatic: No symptoms reported Neurological/Psychological: No symptoms reported -: Yes All other systems reviewed and negative Physical Exam - Vital signs Vitals: Temp 98.8 F 08/29/20 01:07 Interpretation: Normal - General General appearance: Appears well, Alert In distress: None Notes: mildly somnolent, but can be easily awoken - HEENT Head: Normocephalic, Atraumatic Eyes: Normal Pupils: PERRL Neck: Normal, Supple - Respiratory Respiratory status: No respiratory distress Chest status: Nontender Breath sounds: Normal. No: Rales, Rhonchi, Wheezing Chest palpation: Normal - Cardiovascular Rhythm: Regular Heart sounds: Normal auscultation Murmur: No - Abdominal Inspection: Normal Distension: No distension Bowel sounds: Normal Tenderness: Nontender. No: Tender, McBurney's point, Savage's sign, Guarding, Rebound Organomegaly: No organomegaly - Back Back: Normal, Nontender - Neurological Neuro grossly intact: Yes Cognition: Normal Orientation: AAOx4 Mac Coma Scale Eye Opening: Spontaneous Mac Coma Scale Verbal: Oriented Mac Coma Scale Motor: Obeys Commands Mac Coma Scale Total: 15 Speech: Normal Cranial nerves: Normal Cerebellar coordination: Normal Motor strength normal: LUE, RUE, LLE, RLE Additional motor exam normals: Equal freight and passenger agent Sensory: Normal - Psychological Associated symptoms: Normal affect, Normal mood - Skin Skin Temperature: Warm Skin Moisture: Dry Skin Color: Normal Course - Re-evaluation Re-evalutation: 08/29/20 03:34 Spoke with Rose at [employer] [facility]. She is aware that the patient got activated charcoal. We went over her lab work. I am still pending an EKG on this patient. [employer] states that the patient can have a 6-hour monitoring as long as her EKG looks okay. She cannot have prolonged QTC or QRS. There will be cause for concern for QTC greater than or equal to 500 and a QRS greater than 120. I have asked for an EKG to be done. There has been an order for 2 hours. - Vital Signs Vital signs: Temp Pulse Resp BP Pulse Ox 97.6 F 89 20 121/68 100 08/29/20 06:23 08/29/20 06:23 08/29/20 06:23 08/29/20 06:23 08/29/20 06:23 - Laboratory Result Diagrams: 08/29/20 02:05 08/29/20 02:05 Laboratory results interpreted by me: 08/29/20 08/29/20 08/29/20 01:23 02:05 02:05 Hct 35.8 L Potassium 3.3 L Glucose 123 H Urine Protein 30 H Urine Ketones TRACE H Urine Blood LARGE H Ur Leukocyte Esterase SMALL H Salicylates < 1.0 L Acetaminophen < 10 L - EKG Interpretation by Me Additional EKG results interpreted by me: 08/29/20 03:50 Rate 85 Rhythm sinus Interpretation: No STEMI; QTC is 490, QRS is 80 respiratory encouraged Discharge - Discharge Clinical Impression: Suicidal ideation Overdose Qualifiers: Encounter type: initial encounter Injury intent: intentional self-harm Qualified Code(s): T50.902A - Poisoning by unspecified drugs, medicaments and biological substances, intentional self-harm, initial encounter Condition: Stable Disposition: PSYCH HOSP/UNIT Referrals: VELIA NOLASCO MD [ACTIVE STAFF] - Follow up as needed
[2020-08-29] MEDS ORDERED: SERTRALINE HCL 50 MG TABLET PO ONE (17:13)
--- NOTE | 2020-08-29 17:13 | ER Document Report ---
Doctor's Note Notes: Patient reevaluated, patient stable for discharge at this time. She has been cleared by mental health.
[2020-08-29 17:23] VITALS: BP 108/70
--- NOTE | 2020-08-29 17:50 | EKG REPORT ---
SEVERITY:- BORDERLINE ECG - SINUS RHYTHM BORDERLINE PROLONGED QT INTERVAL : Confirmed by: Kareem Bucio 29-Aug-2020 17:49:24
--- NOTE | 2020-08-31 11:53 | PSYCHOLOGICAL NOTE ---
Psych Note - Psych Note Date seen by psych provider: 08/29/20 Time seen by psych provider: 09:55 - attempted evaluation at 1340 Psych Note: Reason for Consult:Overdose Consent Permissions: Patient arrived to [facility] ED via EMS after intentional overdose of Unisom. Patient disclosed she was upset about getting in to an argument with her . She reflected the had previously stopped talking her anti-depressant medication about 1 month ago because "I did not want to be reliant on a medication, but it is clear I should not have stopped and need to just realize I need to take medication...there is nothing wrong with needing medications, it was just my fa raj was making me think I didn't need it anymore. I started because of ." She reported she does not want to and immediately after taking them "I thought oh, my God you idiot what did you just do...I made myself throw up and called my ." Patient's joined patient at bedside. He confirms he would like to be part of the patient's plan of care. He disclosed they have no firearms in the home and will ensure the patient does not have access to any other weapons and medication while establishing and working with outpatient services. HE reports he has no concerns with the patient returning home with him. Patient was initially unable to engage with first attempts to evaluated, as she was unable to be awoken. Patient later was alert and orientated to person, plac e time and circumstance. Mood is euthymic with congruent affect as evidenced by smiling and laughing with clinician. Patient admits to impulsive act of intentional overdose that she reports she immediately took steps to ensure her medical safety; she denies wanting to . Patient denies homicidal ideation. Delusions are absent and behaviour is congruent with an intact reality based presentation ie organized and linear thought processes. Eye contact was well maintained. Conversational speech is within normal rate tone and prosody. Intellectual abilities appear to be average range. Attention and concentration is good. Insight and judgment is good. Impulsive control was poor. IVC Criteria per [place] GS 122C Dangerous to others Within the relevant past the individual No has inflicted or attempted to inflict or threatened to inflict serious bodily harm on another AND No that there is a reasonable probability that this conduct will be repeated. OR No has acted in such a way as to create a substantial risk of serious bodily harm to another AND No that there is a reasonable probability that this conduct will be repeated. OR No has engaged in extreme destruction of property AND NO that there is a reasonable probability that this conduct will be repeated. Previous episodes of dangerousness to others, when applicable, may be considered when determining reasonable probability of future dangerous conduct. Clear, cogent, and convincing evidence that an individual has committed a homicide in the relevant past is prima facie evidence of dangerousness to others. Dangerous to self Within the relevant past the individual has done any of the following: acted in such a way as to show ALL of the following: No The individual would be unable without care, supervision, and the continued assistance of others not otherwise available, to exercise self- control, judgment, and discretion in the conduct of the individual's daily responsibilities and social relations or to satisfy the individual's need for nourishment, personal or medical care, fpc, or self-protection and safety. AND No There is a reasonable probability of the individual suffering serious physical debilitation within the near future unless adequate treatment is given. A showing of behavior that is grossly irrational, of actions that the individual is unable to control, of behavior that is grossly inappropriate to the situation, or of other evidence of severely impaired insight and judgment shall create a prima facie inference that the individual is unable to care for himself or herself. OR YES has attempted suicide or threatened suicide AND No that there is a reasonable probability of suicide unless adequate treatment is given Patient reported impulsive act of taking pills and immediately making herself throw up, call her to notify and ask for help and coming to [facility] ED for continued assistance to ensure medically alright. He demonstrated insight when reflecting on needing to restart medication after she stopped taking about a month ago, starting therapeutic services and talking more with her when needed. Patient reports she does not want to . OR No has mutilated himself or herself or attempted to mutilate himself or herself AND No that there is a reasonable probability of serious self-mutilation unless adequate treatment is given. NOTE: Previous episodes of dangerousness to self, when applicable, may be considered when determining reasonable probability of physical debilitation, suicide, or self-mutilation. Medication recommendations per [facility] contracted psychiatrist are as follows: Zoloft 50mg daily Impression\\plan: Patient is recommended for rescinf of 24 petition for evauaton and is cleared from acute psychaitric services; paperwork is signed and placed in patient's chart. Patient reported impulsive act of taking pills and immediately making herself throw up, call her to notify and ask for help and coming to [facility] ED for continued assistance to ensure medically alright. He demonstrated insight when reflecting on needing to restart medication after she stopped taking about a month ago, starting therapeutic services and talking more with her when needed. Patient reports she does not want to . Patient's confirms he would like to be part of the patient's plan of care. He disclosed they have no firearms in the home and will ensure the patient does not have access to any other weapons and medication while establishing and working with outpatient services. HE reports he has no concerns with the patient returning home with him. Medication recommendations have been provided in addition to local resource list of area providers including mobile crisis contact information. Patient is recommended to make an appointment within the next 3 days with her chosen provider. Dr. Hussein was consulted to care management of this patient; attending physicians in agreement with recommendations and disposition.
== END 2020-08-29 17:24 | disposition home or self-care (01) ==
LOC: ER 01:07
DX: T45.0X2A Poisoning by antiallergic and antiemetic drugs, intentional self-harm, initial encounter (principal); R40.0 Somnolence; R11.10 Vomiting, unspecified
CPT/HCPCS: 36415; 80053; 80307; 81001; 85025; 93005; 93010; 99285

== ENCOUNTER 2020-09-12 17:51 | Emergency (ER) | payer OTHER ==
[2020-09-12 18:51] LABS: ABSOLUTE BASOPHILS # (AUTO) 0.2 10^3/uL (0.0-0.2); ABSOLUTE LYMPHOCYTES (AUTO) 0.9 10^3/uL (0.5-4.7); ABSOLUTE MONOCYTES (AUTO) 0.4 10^3/uL (0.1-1.4); ABSOLUTE NEUT (AUTO) 11.3 10^3/uL (1.7-8.2); BASOPHILS % (AUTO) 1.2 % (0-2); HEMATOCRIT 40.3 % (36.0-47.0); HEMOGLOBIN 13.7 g/dL (12.0-15.5); MEAN CORPUSCULAR HEMOGLOBIN 29.3 pg (27.0-33.4); MEAN CORPUSCULAR HGB CONC 33.9 g/dL (32.0-36.0); MEAN CORPUSCULAR VOLUME 87 fl (80-97); MONOCYTES % (AUTO) 3.5 % (3-13); PLATELET COUNT 226 10^3/uL (150-450); RED BLOOD COUNT 4.65 10^6/uL (3.72-5.28); RED CELL DISTRIBUTION WIDTH 12.6 % (11.5-14.0); SEGMENTED NEUTROPHILS % (AUTO) 88.3 % (42-78); TOTAL CELLS COUNTED % (AUTO) 100 %; WHITE BLOOD COUNT 12.9 10^3/uL (4.0-10.5)
[2020-09-12 19:10] LABS: ALBUMIN 4.6 g/dL (3.5-5.0); ALKALINE PHOSPHATASE 83 U/L (38-126); ANION GAP 9 (5-19); ASPARTATE AMINO TRANSFERASE 21 U/L (14-36); BILIRUBIN,DIRECT 0.1 mg/dL (0.0-0.4); BILIRUBIN,TOTAL 0.4 mg/dL (0.2-1.3); BLOOD UREA NITROGEN 12 mg/dL (7-20); CALCIUM 9.6 mg/dL (8.4-10.2); CARBON DIOXIDE 28 mmol/L (22-30); CHLORIDE 100 mmol/L (98-107); GLUCOSE 117 mg/dL (75-110); POTASSIUM 3.9 mmol/L (3.6-5.0); TOTAL PROTEIN 7.7 g/dL (6.3-8.2)
[2020-09-12] MEDS ORDERED: ACETAMINOPHEN 325 MG TABLET PO ONE (20:21)
[2020-09-12] MEDS ORDERED: NORMAL SALINE 1000 ML 1,000 ML IV ONE (22:29)
[2020-09-12] MEDS ORDERED: METOCLOPRAMIDE HCL INJ/PF 10 MG/2 ML SDV IV ONE (22:29)
[2020-09-12] MEDS ORDERED: DIPHENHYDRAMINE HCL 50 MG/ML VIAL IV ONE (22:29)
--- NOTE | 2020-09-12 22:36 | ER Document Report ---
ED General - General Chief Complaint: Abdominal Pain Stated Complaint: ABDOMINAL PAIN/NAUSEA/VOMITING Time Seen by Provider: 09/12/20 22:06 Primary Care Provider: SRIKANTH FRANCE FNP-C [Primary Care Provider] - Follow up as needed Notes: CHIEF COMPLAINT: Multiple complaints HPI: 20-year-old female presenting with 2 days of a posterior headache with neck pain with myalgia, nausea vomiting. No definite fevers. Patient has taken Tylenol Motrin and other [id number] medicines without resolution of the h eadache. No history of headaches or migraines. Patient has had a slight cough no sore throat. No vision change or loss. Headache is worse with movement. Patient complains of mild epigastric abdominal soreness which she relates to multiple episodes of vomiting over the last 24 hours. No dysuria. Patient states that she came in by EMS and they did test her for Covid with a rapid test that was negative ROS: See HPI - all other systems were reviewed and are otherwise negative Constitutional: no fever Eyes: no drainage, no blurred vision ENT: no runny nose, no sore throat Cardiovascular: no chest pain Resp: no SOB, + cough GI: + vomiting, no diarrhea, + abdominal pain : no dysuria Integumentary: no rash Allergy: no hives Musculoskeletal: no extremity pain or swelling Neurological: no numbness/tingling, no weakness, positive headache MEDICATIONS: I agree with the patient medications as charted by the RN. ALLERGIES: I agree with the allergies as charted by the RN. PAST MEDICAL HISTORY/PAST SURGICAL HISTORY: Reviewed and agree as charted by RN. SOCIAL HISTORY: Reviewed and agree as charted by RN. FAMILY HISTORY: No significant familial comorbid conditions directly related to patient complaint EXAM: Reviewed vital signs as charted by RN. CONSTITUTIONAL: Alert and oriented and responds appropriately to questions. Well-appearing; well-nourished HEAD: Normocephalic; atraumatic EYES: PERRL; Conjunctivae clear, sclerae non-icteric ENT: normal nose; no rhinorrhea; moist mucous membranes; pharynx without lesions noted, no uvula edema or deviation, no tonsillar hypertrophy, phonation normal NECK: There is some difficulty for the patient in rotating the head left and right as well as flexion extension, unable to put her chin on her chest secondary discomfort in the posterior head and neck region. no cervical lymphadenopathy, no masses CARD: RRR; no murmurs, no clicks, no rubs, no gallops; symmetric distal pulses RESP: Normal chest excursion without splinting or tachypnea; breath sounds clear and equal bilaterally; no wheezes, no rhonchi, no rales, pulse oximetry 95% on room air not hypoxic ABD/GI: Normal bowel sounds; non-distended; soft, non-tender, no rebound, no guarding; no palpable organomegaly or masses. BACK: The back appears normal and is non-tender to palpation, there is no CVA tenderness EXT: Normal ROM in all joints; non-tender to palpation; no cyanosis, no effusions, no edema SKIN: Normal color for age and race; warm; dry; good turgor; no acute lesions noted NEURO: Moves all extremities equally; Motor and sensory function intact PSYCH: The patient's mood and manner are appropriate. Grooming and personal hygiene are appropriate. MDM: TRAVEL OUTSIDE OF THE [place] IN LAST 30 DAYS: No - Related Data Allergies/Adverse Reactions: No Known Allergies Allergy (Verified 11/26/19 14:12) Past Medical History - Social History Smoking Status: Unknown if Ever Smoked Frequency of alcohol use: None Drug Abuse: None Family History: Reviewed & Not Pertinent Renal/ Medical History: Denies: Hx Peritoneal Dialysis Psychiatric Medical History: Reports: Hx Depression Physical Exam - Vital signs Vitals: Pulse Ox 95 09/12/20 18:05 Course - Re-evaluation Re-evalutation: 09/13/20 00:17 Patient is feeling much better. Improved coloration. Able to more fully move the head and neck without difficulty. 09/13/20 02:31 Patient looks much better. Coloration has improved. She states she feels much better her headache is completely resolved. Patient with minimal neck discomfort is able to flex and extend the head and neck without difficulty. Able to rotate left and right without difficulty. Patient influenza test was negative. She has no abdominal pain on reexam. We discussed meningitis signs and symptoms and risks. I did offer lumbar puncture at this time as patient still has very slight neck discomfort with full flexion of the chin to the chest but patient states that she feels much better and does not want lumbar puncture at this time she is aware we cannot rule out meningitis as a possibility at this time. Patient states she would like to go home and hydrate at home and treat symptomatically for the next 24 to 48 hours if headache or neck pain worsen she will return and is aware that she will likely need lumbar puncture at that time. She will be considered a person under investigation at this time for COVID-19 and will self quarantine - Vital Signs Vital signs: Temp Pulse Resp BP Pulse Ox 97.9 F 77 17 94/53 L 98 09/12/20 23:31 09/12/20 23:31 09/12/20 23:31 09/13/20 01:01 09/13/20 01:01 - Laboratory Result Diagrams: 09/12/20 18:38 09/12/20 18:38 Laboratory results interpreted by me: 09/12/20 09/12/20 18:38 18:38 WBC 12.9 H Lymph % (Auto) 7.0 L Absolute Neuts (auto) 11.3 H Seg Neutrophils % 88.3 H Sodium 136.5 L Glucose 117 H Discharge - Discharge Clinical Impression: Neck pain, Person under investigation for COVID-19 Headache Qualifiers: Headache type: unspecified Headache chronicity pattern: acute headache Intractability: not intractable Qualified Code(s): R51.9 - Headache, unspecified Vomiting Qualifiers: Vomiting type: unspecified Vomiting Intractability: non-intractable Nausea presence: with nausea Qualified Code(s): R11.2 - Nausea with vomiting, unspecified Condition: Stable Disposition: HOME, SELF-CARE Additional Instructions: 10 you to hydrate well at home. Motrin Tylenol for fever or body ache. You have declined lumbar puncture today, we cannot completely rule out meningitis as a cause of your headache and neck pain. If you have worsening headache or neck pain over the next 24 to 48 hours return for reevaluation as discussed. You are considered a person under investigation for COVID-19 at this time self quarantine at home pending your test results. Take Zofran for nausea or vomiting Prescriptions: Ondansetron [Zofran Odt 4 mg Tablet] 1 - 2 tab PO Q4H PRN #15 tab.rapdis PRN Reason: For Nausea/Vomiting Referrals: SRIKANTH FRANCE FNP-C [Primary Care Provider] - Follow up as needed
[2020-09-12] MEDS: LIDOCAINE 2% INJ (20 MG/ML) 20 ML MDV INJ ONE (23:25)
--- NOTE | 2020-09-12 23:30 | RADIOLOGY REPORT (SQ) ---
EXAM DESCRIPTION: XR CHEST 1 VIEW COMPLETED DATE/TME: 09/12/2020 23:12 CLINICAL HISTORY: cough COMPARISON: None. FINDINGS: Single frontal radiograph view of the chest. Cardiomediastinal silhouette: Normal size and contour. Lungs: No consolidation, pneumothorax, or pleural effusion. Bones: No acute osseous abnormality. Upper abdomen: No abnormality identified. IMPRESSION: 1. No acute pulmonary process identified.
[2020-09-13 02:09] LABS: A TYPE INFLUENZA AG NEGATIVE (NEGATIVE); B INFLUENZA AG NEGATIVE (NEGATIVE)
[2020-09-13 02:58] VITALS: BP 120/77
[2020-09-13] MEDS: LIDOCAINE 2% INJ (20 MG/ML) 20 ML MDV INJ ONE (03:20)
== END 2020-09-13 03:20 | disposition home or self-care (01) ==
LOC: ER 17:51
DX: R51.9 Headache, unspecified (principal); M54.2 Cervicalgia; M79.10 Myalgia, unspecified site; R11.2 Nausea with vomiting, unspecified; Z20.828 Contact with and (suspected) exposure to other viral communicable diseases
CPT/HCPCS: 99284; 96361; 96374; 36415; 83690; 84703; 85025; 87635; 80053; 87804; 71045; J1200; J2765; J7030; C9803; J3490

== ENCOUNTER 2020-09-15 11:45 | Emergency (ER) | payer OTHER ==
[2020-09-15 12:26] VITALS: BP 112/74
--- NOTE | 2020-09-15 13:29 | ER Document Report ---
ED Medical Screen (RME) - General Chief Complaint: Headache Stated Complaint: HEADACHE,BACK,NECK,EAR PAIN Time Seen by Provider: 09/15/20 13:24 Primary Care Provider: SRIKANTH FRANCE FNP-C [Primary Care Provider] - Follow up as needed Mode of Arrival: Ambulatory Information source: Patient Notes: 20-year-old female presented to ED for complaint of headache neck pain back pain. She states she was seen on the and they want to do a lumbar puncture at the time but she thought that she did needed at the time but they told her she continued to have symptoms they did not get better that she needed to come back and get the lumbar puncture. Patient states her headache neck pain and back pain is better worse and now she has a earache as well. She was tested for Covid last visit but did not get a result. She is requesting her lumbar puncture that they told her she needed. I have greeted and performed a rapid initial assessment of this patient. A comprehensive ED assessment and evaluation of the patient, analysis of test results and completion of medical decision making process will be conducted by an additional ED providers. TRAVEL OUTSIDE OF THE [place] IN LAST 30 DAYS: No - Related Data Allergies/Adverse Reactions: No Known Allergies Allergy (Verified 09/15/20 13:21) Home Medications: sertraline. xanax. zofran Past Medical History - Social History Chew tobacco use (# tins/day): No Frequency of alcohol use: Occasional Drug Abuse: None Renal/ Medical History: Denies: Hx Peritoneal Dialysis Psychiatric Medical History: Reports: Hx Depression Physical Exam - Vital signs Vitals: Temp Pulse Resp BP Pulse Ox 98.4 F 78 16 112/74 99 09/15/20 12:25 09/15/20 12:25 09/15/20 12:25 09/15/20 12:25 09/15/20 12:25 Course - Vital Signs Vital signs: Temp Pulse Resp BP Pulse Ox 98.4 F 78 16 112/74 99 09/15/20 13:21 09/15/20 12:25 09/15/20 12:25 09/15/20 12:25 09/15/20 12:25 Doctor's Discharge - Discharge Referrals: SRIKANTH FRANCE FNP-C [Primary Care Provider] - Follow up as needed
== END 2020-09-15 19:47 | disposition left against medical advice (07) ==
LOC: ER 11:45
DX: R51.9 Headache, unspecified (principal); M54.2 Cervicalgia; M54.9 Dorsalgia, unspecified; H92.09 Otalgia, unspecified ear; F32.9 Major depressive disorder, single episode, unspecified; Z79.899 Other long term (current) drug therapy; Z53.20 Procedure and treatment not carried out because of patient's decision for unspecified reasons
CPT/HCPCS: 99281